=== PATIENT | female | born 1990 | race Caucasian/White ===

== ENCOUNTER 2016-10-28 15:08 | Emergency (ER) | payer OTHER ==
[2016-10-28] MEDS ORDERED: SODIUM CHLORIDE 0.9% 1,000 ML IV STA (16:59)
[2016-10-28] MEDS ORDERED: ONDANSETRON 4 MG/2 ML VIAL IVP STA (16:59)
--- NOTE | 2016-10-28 17:26 | ED ---
General Adult HPI - General Chief complaint: Skin/Abscess/Foreign Body Stated complaint: Post OP pain/C section Time Seen by Provider: 10/28/16 16:48 Source: patient, RN notes reviewed Mode of arrival: ambulatory Limitations: no limitations - History of Present Illness Initial comments: Patient is a 26-year-old female status post 3 weeks, who presents emergency room today with chief complaint of lower abdominal pain. She states she's had this pain since . She states not been getting any better. She admits that she's unsure if there could be a possible infection around the incision line. She denies any other complaints associated symptoms. Patient denies any recent fever, chills, shortness of breath, chest pain, back pain, nausea or vomiting, numbness or tingling, dysuria or hematuria, constipation or diarrhea, headaches or visual changes, or any other complaints. - Related Data Home Medications Medication Instructions Recorded Confirmed Pnv#26/Iron Poly/FA/Dha 1 cap PO DAILY 10/28/16 10/28/16 [Vitafol-One Capsule] Previous Rx's Medication Instructions Recorded Nitrofurantoin Monohyd/M-Cryst 100 mg PO Q12HR #14 cap 10/28/16 [Macrobid] Allergies Allergy/AdvReac Type Severity Reaction Status Date / Time erythromycin base AdvReac Abdominal Verified 10/28/16 17:03 Pain Review of Systems ROS Statement: Those systems with pertinent positive or pertinent negative responses have been documented in the HPI. ROS Other: All systems not noted in ROS Statement are negative. Past Medical History Past Medical History: Asthma, GERD/Reflux History of Any Multi-Drug Resistant Organisms: None Reported Past Surgical History: Section Past Psychological History: Anxiety Smoking Status: Former smoker Past Alcohol Use History: None Reported Past Drug Use History: None Reported General Exam - General Exam Comments Initial Comments: General: The patient is awake and alert, in no distress, and does not appear acutely ill. Eye: Pupils are equal, round and reactive to light, extra-ocular movements are intact. No nystagmus. There is normal conjunctiva bilaterally. No signs of icterus. Ears, nose, mouth and throat: There are moist mucous membranes and no oral lesions. Neck: The neck is supple, there is no tenderness or JVD. Cardiovascular: There is a regular rate and rhythm. No murmur, rub or gallop is appreciated. Respiratory: Lungs are clear to auscultation, respirations are non-labored, breath sounds are equal. No wheezes, stridor, rales, or rhonchi. Gastrointestinal: Patient does have low incision that is healing well. No sign of redness erythema. No sign of infection. Patient does have some mild tenderness to the lower abdomen on palpation. Musculoskeletal: Normal ROM, no tenderness. Strength 5/5. Sensation intact. Pulses equal bilaterally 2+. Neurological: A&O x 3. CN II-XII intact, There are no obvious motor or sensory deficits. Coordination appears grossly intact. Speech is normal. Skin: Skin is warm and dry and no rashes or lesions are noted. Psychiatric: Cooperative, appropriate mood & affect, normal judgment. Limitations: no limitations Course Vital Signs 10/28/16 15:18 Temperature 98.0 F Pulse Rate 97 Respiratory 18 Rate Blood Pressure 139/89 O2 Sat by Pulse 100 Oximetry Medical Decision Making - Medical Decision Making Patient reexamined at this time shows no signs of distress. Patient's labs been reviewed and shows no elevated white count. Negative lactic acid. Patient 's urinalysis shows 7 white cells. Patient admits that the pain has been constant since . States she's not getting any worse. Patient has no fever. No other symptoms currently. Patient does admit to increased urinary frequency some discomfort. Patient will be started on antibiotics to cover for urinary tract infection. At this time is no signs or symptoms for a surgical abdomen. Patient will be discharged home advised follow-up with the [facility] for further evaluation in the next 2 days. Advised return here to the emergency room if any symptoms increase or worsen or for any other concerns. - Lab Data Result diagrams: 10/28/16 17:22 10/28/16 17:22 Lab Results 10/28/16 10/28/16 10/28/16 Range/Units 17:22 17:22 17:22 WBC 5.0 (3.8-10.6) k/uL RBC 3.95 (3.80-5.40) m/uL Hgb 11.5 (11.4-16.0) gm/dL Hct 36.4 (34.0-46.0) % MCV 92.2 (80.0-100.0) fL MCH 29.2 (25.0-35.0) pg MCHC 31.7 (31.0-37.0) g/dL RDW 13.2 (11.5-15.5) % Plt Count 418 (150-450) k/uL Neutrophils % 52 % Lymphocytes % 38 % Monocytes % 5 % Eosinophils % 2 % Basophils % 1 % Neutrophils # 2.6 (1.3-7.7) k/uL Lymphocytes # 1.9 (1.0-4.8) k/uL Monocytes # 0.3 (0-1.0) k/uL Eosinophils # 0.1 (0-0.7) k/uL Basophils # 0.0 (0-0.2) k/uL Sodium 142 (137-145) mmol/L Potassium 4.1 (3.5-5.1) mmol/L Chloride 106 (98-107) mmol/L Carbon Dioxide 24 (22-30) mmol/L Anion Gap 12 mmol/L BUN 15 (7-17) mg/dL Creatinine 0.60 (0.52-1.04) mg/dL Est GFR (MDRD) Af Amer >60 (>60 ml/min/1.73 sqM) Est GFR (MDRD) Non-Af >60 (>60 ml/min/1.73 sqM) Glucose 93 (74-99) mg/dL Plasma Lactic Acid Martin (0.7-2.0) mmol/L Calcium 10.3 H (8.4-10.2) mg/dL Total Bilirubin 0.5 (0.2-1.3) mg/dL AST 35 (14-36) U/L ALT 49 (9-52) U/L Alkaline Phosphatase 85 (38-126) U/L Total Protein 7.5 (6.3-8.2) g/dL Albumin 4.6 (3.5-5.0) g/dL Urine Color Urine Appearance (Clear) Urine pH (5.0-8.0) Ur Specific [place] (1.001-1.035) Urine Protein (Negative) Urine Glucose (UA) (Negative) Urine Ketones (Negative) Urine Blood (Negative) Urine Nitrite (Negative) Urine Bilirubin (Negative) Urine Urobilinogen (<2.0) mg/dL Ur Leukocyte Esterase (Negative) Urine RBC (0-5) /hpf Urine WBC (0-5) /hpf Ur Squamous Epith Cells (0-4) /hpf Hyaline Casts (0-2) /lpf Granular Casts (0) /lpf Urine Mucus (None) /hpf Urine HCG, Qual Not Detected (Not Detectd) 10/28/16 10/28/16 Range/Units 17:22 17:22 WBC (3.8-10.6) k/uL RBC (3.80-5.40) m/uL Hgb (11.4-16.0) gm/dL Hct (34.0-46.0) % MCV (80.0-100.0) fL MCH (25.0-35.0) pg MCHC (31.0-37.0) g/dL RDW (11.5-15.5) % Plt Count (150-450) k/uL Neutrophils % % Lymphocytes % % Monocytes % % Eosinophils % % Basophils % % Neutrophils # (1.3-7.7) k/uL Lymphocytes # (1.0-4.8) k/uL Monocytes # (0-1.0) k/uL Eosinophils # (0-0.7) k/uL Basophils # (0-0.2) k/uL Sodium (137-145) mmol/L Potassium (3.5-5.1) mmol/L Chloride (98-107) mmol/L Carbon Dioxide (22-30) mmol/L Anion Gap mmol/L BUN (7-17) mg/dL Creatinine (0.52-1.04) mg/dL Est GFR (MDRD) Af Amer (>60 ml/min/1.73 sqM) Est GFR (MDRD) Non-Af (>60 ml/min/1.73 sqM) Glucose (74-99) mg/dL Plasma Lactic Acid Martin 1.0 (0.7-2.0) mmol/L Calcium (8.4-10.2) mg/dL Total Bilirubin (0.2-1.3) mg/dL AST (14-36) U/L ALT (9-52) U/L Alkaline Phosphatase (38-126) U/L Total Protein (6.3-8.2) g/dL Albumin (3.5-5.0) g/dL Urine Color Yellow Urine Appearance Cloudy H (Clear) Urine pH 6.5 (5.0-8.0) Ur Specific [place] 1.019 (1.001-1.035) Urine Protein Trace H (Negative) Urine Glucose (UA) Negative (Negative) Urine Ketones Negative (Negative) Urine Blood Small H (Negative) Urine Nitrite Negative (Negative) Urine Bilirubin Negative (Negative) Urine Urobilinogen <2.0 (<2.0) mg/dL Ur Leukocyte Esterase Trace H (Negative) Urine RBC 19 H (0-5) /hpf Urine WBC 7 H (0-5) /hpf Ur Squamous Epith Cells 7 H (0-4) /hpf Hyaline Casts 2 (0-2) /lpf Granular Casts 2 (0) /lpf Urine Mucus Few H (None) /hpf Urine HCG, Qual (Not Detectd) Disposition Clinical Impression: UTI (urinary tract infection) Disposition: HOME SELF-CARE Condition: Good Instructions: Urinary Tract Infection in Women (ED) Additional Instructions: Please use medication as discussed. Please follow-up with family doctor in the next 2 days of symptoms have not improved. Please return to emergency room if the symptoms increase or worsen or for any other concerns. Prescriptions: Nitrofurantoin Monohyd/M-Cryst [Macrobid] 100 mg PO Q12HR #14 cap Referrals: Selam Holloway MD [Primary Care Provider] - 1-2 days Time of Disposition: 18:23
--- NOTE | 2016-10-28 17:34 | XR ---
EXAMINATION TYPE: XR KUB DATE OF EXAM: 10/28/2016 5:30 PM COMPARISON: 06/14/2015 HISTORY: Abdominal pain TECHNIQUE: Single view FINDINGS: Bowel gas pattern is normal. There is no sign of intestinal obstruction or pneumoperitoneum . Fecal pattern is normal. There is no sign of a mass. IMPRESSION: Nonacute abdomen. No change.
[2016-10-28 17:37] LABS: Basophils % (A) 1 %; CH 29.6; CHCM 32.2; Eosinophils # (A) 0.1 k/uL (0-0.7); Eosinophils % (A) 2 %; HCT 36.4 % (34.0-46.0); HDW 2.61; HGB 11.5 gm/dL (11.4-16.0); Luc # (Auto) 0.15; Luc % (Auto) 3; Lymphocytes # (A) 1.9 k/uL (1.0-4.8); Lymphocytes % (A) 38 %; MCH 29.2 pg (25.0-35.0); MCHC 31.7 g/dL (31.0-37.0); MCV 92.2 fL (80.0-100.0); Monocytes # (A) 0.3 k/uL (0-1.0); Monocytes % (A) 5 %; Neutrophils # (A) 2.6 k/uL (1.3-7.7); Neutrophils % (A) 52 %; RBC 3.95 m/uL (3.80-5.40); RDW 13.2 % (11.5-15.5); WBC (Perox) 5.28
[2016-10-28 17:47] LABS: ALT 49 U/L (9-52); AST 35 U/L (14-36); Alkaline Phosphatase 85 U/L (38-126); Anion Gap 12 mmol/L; Appearance,Urine Cloudy (Clear); Bilirubin,Urine Negative (Negative); Blood Urea Nitrogen 15 mg/dL (7-17); Calcium 10.3 mg/dL (8.4-10.2); Carbon Dioxide 24 mmol/L (22-30); Chloride 106 mmol/L (98-107); Glucose 93 mg/dL (74-99); Glucose,Urine (UA) Negative (Negative); Granular Casts,Urine 2 /lpf (0); Ketones,Urine Negative (Negative); Leukocyte Esterase,Urine Trace (Negative); Mucus,Urine Few /hpf; Nitrite,Urine Negative (Negative); Non-African American GFR(MDRD) >60 (>60 ml/min/1.73 sqM); PH, Urine 6.5 (5.0-8.0); Particle Count 5661; Potassium 4.1 mmol/L (3.5-5.1); Protein,Urine Trace (Negative); RBC,Urine 19 /hpf (0-5); Sodium 142 mmol/L (137-145); Specific Gravity,Urine 1.019 (1.001-1.035); Squamous Epithelial Cell,Urine 7 /hpf (0-4); Total Bilirubin 0.5 mg/dL (0.2-1.3); Total Protein 7.5 g/dL (6.3-8.2); UA Billing (MACRO vs. MICRO) MICRO; Urobilinogen,Urine <2.0 mg/dL (<2.0); WBC,Urine 7 /hpf (0-5)
[2016-10-28] MEDS ORDERED: KETOROLAC 30 MG/ML 1 ML VIAL IVP STA (18:39)
[2016-10-28 18:51] VITALS: BP 150/78; PULSE 55; RESP 16; TEMP 97.8
== END 2016-10-28 18:49 | disposition home or self-care (01) ==
LOC: EC 15:08
DX: O86.20 Urinary tract infection following delivery, unspecified (principal); O99.89 Other specified diseases and conditions complicating pregnancy, childbirth and the puerperium; R10.30 Lower abdominal pain, unspecified; Z87.891 Personal history of nicotine dependence; Z79.899 Other long term (current) drug therapy; Z88.1 Allergy status to other antibiotic agents
CPT/HCPCS: 36415; 80053; 83605; 85025; 81001; 81025; 87086; 74000; 99284; 96374; 96361; J1885

== ENCOUNTER 2017-07-06 09:46 | Day surgery (SDC) | payer OTHER ==
[2017-07-06] MEDS ORDERED: LIDOCAINE 1% 20 ML VIAL (10MG/ML) FOR IV START INTRADERMA PRN (10:22)
[2017-07-06] MEDS: LACTATED RINGERS 1,000 ML IV SCH ×2 (10:33→11:09)
[2017-07-06 10:44] VITALS: RESP 16; TEMP 98.1
[2017-07-06] MEDS ORDERED: PROPOFOL 10 MG/ML 20 ML VIAL IV ONE (10:52)
[2017-07-06] MEDS ORDERED: LIDOCAINE 1% INJ 10MG/ML (20 ML MDV) ONE (10:52)
--- NOTE | 2017-07-06 11:00 | P.GSHP ---
History of Present Illness H&P Date: 07/06/17 Chief Complaint: Or colon polyps This is a 18-year-old female who's had a previous colonoscopy. Patient has had history of colon polyps. She presents today for colonoscopy Past Medical History Past Medical History: Asthma, GERD/Reflux History of Any Multi-Drug Resistant Organisms: None Reported Past Surgical History: Section Past Psychological History: Anxiety Smoking Status: Former smoker Past Alcohol Use History: None Reported Past Drug Use History: None Reported Medications and Allergies Allergies Allergy/AdvReac Type Severity Reaction Status Date / Time erythromycin base AdvReac Abdominal Verified 10/28/16 17:03 Pain Surgical - Exam Vital Signs Temp Pulse Resp BP Pulse Ox 98.1 F 99 16 110/73 100 07/06/17 10:41 07/06/17 10:41 07/06/17 10:41 07/06/17 10:41 07/06/17 10:41 - General well developed, no distress - Eyes PERRL - ENT normal pinna - Neck no masses - Respiratory normal expansion - Cardiovascular Rhythm: regular - Abdomen Abdomen: soft, non tender Assessment and Plan Assessment: [place] colon polyps. We'll perform colonoscopy.
[2017-07-06 12:02] VITALS: BP 117/73; PULSE 74
--- NOTE | 2017-08-13 09:03 | P.OP ---
Date of Procedure: 07/06/17 Preoperative Diagnosis: History of colon polyps Postoperative Diagnosis: Normal colonoscopy Procedure(s) Performed: Colonoscopy Anesthesia: MAC Surgeon: Paul Rey Pathology: none sent Condition: stable Disposition: PACU Description of Procedure: PROCEDURE: The patient was placed on the endoscopy table in the lateral position. Digital rectal examination was performed which revealed no abnormalities. T Flexible colonoscope was then placed in the patient's anus and passed throughout the entire colon. The ileocecal valve was visualized. The cecum, ascending, transverse, descending and sigmoid colon were normal. The rectum was normal as well. There were no masses, polyps or diverticula noted in the entire colon. SUMMARY OF FINDINGS: Normal colonoscopy.
== END 2017-07-06 12:08 | disposition home or self-care (01) ==
LOC: ORWHC2ENDO 09:46
PROVIDERS: ATTEND Surgery
DX: Z12.11 Encounter for screening for malignant neoplasm of colon (principal); Z86.010 Personal history of colon polyps; J45.909 Unspecified asthma, uncomplicated; K21.9 Gastro-esophageal reflux disease without esophagitis; Z87.891 Personal history of nicotine dependence; Z88.1 Allergy status to other antibiotic agents
CPT/HCPCS: 81025; J2001; J2704; G0105; 45378

== ENCOUNTER 2017-10-26 16:14 | Emergency (ER) | payer OTHER ==
[2017-10-26 16:29] VITALS: BP 134/87; PULSE 99; RESP 18; TEMP 98.1
--- NOTE | 2017-10-26 16:31 | ED ---
General Adult HPI - General Chief complaint: Abdominal Pain Stated complaint: Hernia Time Seen by Provider: 10/26/17 16:31 Source: patient Mode of arrival: ambulatory Limitations: no limitations - History of Present Illness Initial comments: 27-year-old female presents to the emergency department today for evaluation of pain at her umbilical hernia. Patient reports that she has had a umbilical hernia for a number of years, and increased in size significantly during her previous and has been persistent for the past one year. She reports over the past week she has developed worsening discomfort in her umbilical hernia as well as epigastrium. She was evaluated an outside hospital on Thursday, she reports that she had lab work as well as a computed tomography scan which revealed a fat-containing umbilical hernia she was diagnosed with acid reflux and discharged home with a PPI. Patient contacted her general surgeon's office today to establish follow- up, she was advised that her surgeon is out of town for the weekend she had a follow-up appointment scheduled for next Thursday. Patient reports that her symptoms have been constant throughout the week. They' ve been unchanged recently. She reports normal bowel bladder activity. She denies any worsening or change in the character of the discomfort in her umbilical hernia. Patient does express significant anxiety at the prospect of having surgery. She expresses concern that she will not be able to carry her 1-year-old child arch into her normal activities of daily living. - Related Data Home Medications Medication Instructions Recorded Confirmed Acetaminophen [Children's Tylenol] 1 dose PO ONCE PRN 10/26/17 10/26/17 Bismuth Subsalicylate 30 mg PO ONCE PRN 10/26/17 10/26/17 [Pepto-Bismol] Ibuprofen [Motrin Ib] 200 - 400 mg PO Q6H PRN 10/26/17 10/26/17 Ibuprofen/Diphenhydramine HCl 1 cap PO HS PRN 10/26/17 10/26/17 [Advil Pm Liqui-Gels] Previous Rx's Medication Instructions Recorded HYDROcodone/APAP 5-325MG [[place] 1 tab PO Q6HR PRN #10 tab 10/26/17 5-325] Allergies Allergy/AdvReac Type Severity Reaction Status Date / Time erythromycin base AdvReac Abdominal Verified 10/26/17 16:37 Pain Review of Systems ROS Statement: Those systems with pertinent positive or pertinent negative responses have been documented in the HPI. ROS Other: All systems not noted in ROS Statement are negative. Constitutional: Denies: fever, chills Respiratory: Denies: cough, dyspnea Cardiovascular: Denies: chest pain, palpitations Endocrine: Denies: fatigue Gastrointestinal: Reports: abdominal pain. Denies: nausea, vomiting, diarrhea, constipation Genitourinary: Denies: dysuria Musculoskeletal: Denies: back pain Skin: Denies: rash, lesions Neurological: Denies: headache, weakness Psychiatric: Reports: anxiety Hematological/Lymphatic: Denies: easy bleeding, easy bruising Past Medical History Past Medical History: Asthma, GERD/Reflux History of Any Multi-Drug Resistant Organisms: None Reported Past Surgical History: Section Past Psychological History: Anxiety Smoking Status: Former smoker Past Alcohol Use History: None Reported Past Drug Use History: None Reported General Exam Limitations: no limitations General appearance: alert Head exam: Present: atraumatic, normocephalic, normal inspection Eye exam: Present: normal appearance, PERRL ENT exam: Present: normal exam Neck exam: Present: normal inspection Respiratory exam: Absent: respiratory distress Cardiovascular Exam: Present: regular rate GI/Abdominal exam: Present: soft, tenderness, hernia (reducible umbilical hernia ). Absent: distended, guarding, rebound, rigid, normal bowel sounds Course Vital Signs 10/26/17 16:26 Temperature 98.1 F Pulse Rate 99 Respiratory 18 Rate Blood Pressure 134/87 O2 Sat by Pulse 97 Oximetry Medical Decision Making - Medical Decision Making Patient was seen and evaluated, patient complaining of pain at the umbilicus. Patient was evaluated at an outside hospital on Thursday, computed tomography scan revealed a fat-containing umbilical hernia at that time she was referred to surgery for outpatient follow-up. In addition she was advised that some of her abdominal pain is likely secondary to acid reflux and she was prescribed Pepcid. Patient reports she has had persistent pain at the umbilicus since eating evaluated on Thursday, she reports there is been no change in character or severity of the pain. She called her general surgeon's office today to establish follow-up in family he will be out of town until next Thursday at which point she has an appointment to be evaluated. She was advised by the senior medical transcriptionist in the office that if she has persistent pain she needs to be reevaluated. This prompted the patient come to the emergency department for further evaluation Again patient reports no change in the character or severity of her pain. She reports that his been persistent for 3-4 days. She does feel that when she lays down she is able to reduce the hernia somewhat however it does remain present. She's had no change in her bowel or bladder habits. She does report significant anxiety at the prospect of having surgery and has multiple questions regarding the surgery and is concerned about possibility of having surgery while she has a 1-year-old child at home. I advised that she needs to discuss her concerns and questions about surgery with the surgeon Physical exam reveals a reducible fat-containing umbilical hernia, there are no overlying skin changes, there are no bowel sounds in the hernia, patient laying flat hernias able to be reduced and a 1-2 cm defect is palpable. Patient did experience some discomfort with reduction of hernia. And a long conversation with the patient regarding further workup. I offered her a repeat computed tomography scan to reevaluate this hernia. However patient states that because her computed tomography scan was only 3 days ago and because she feels very claustrophobic and anxious about computed tomography scan she does not want to repeat imaging. I discussed with the patient methods to reduce the hernia including laying flat , I advised her she should consider wearing a abdominal binder, she reports that she had one after her one year ago. In addition I advised her that should she develop any worsening pain, change in her bowel habits, skin color changes over the hernia or any new or concerning symptoms she needs to be reevaluated immediately. Patient has been evaluated, she has a reducible umbilical hernia, normal bowel sounds, normal bowel function Her vital signs are within normal limits with mild tachycardia, however she expresses significant anxiety at concern that she will be requiring surgery I offered to refer the patient to an alternate surgeon who could perhaps see her earlier than next Thursday, however the patient has an established relationship with her surgeon and does not want to follow up with anybody else. All questions pertaining to care were answered the best of my ability and the patient was discharged home with oral analgesia and a plan to follow up with surgery as scheduled next Thursday or return to the emergency department for reevaluation for any worsening or change in her condition. Disposition Clinical Impression: Umbilical hernia Disposition: HOME SELF-CARE Condition: Good Prescriptions: HYDROcodone/APAP 5-325MG [[place] 5-325] 1 tab PO Q6HR PRN #10 tab PRN Reason: Pain Referrals: Selam Holloway MD [Primary Care Provider] - 1-2 days Paul Rey MD [STAFF PHYSICIAN] - 1-2 days Time of Disposition: 17:03
[2017-10-26] MEDS ORDERED: HYDROcodone/APAP 5-325MG 1 EACH TAB PO STA (17:01)
== END 2017-10-26 17:52 | disposition home or self-care (01) ==
LOC: EC 16:14
DX: K42.9 Umbilical hernia without obstruction or gangrene (principal); R00.0 Tachycardia, unspecified; F41.9 Anxiety disorder, unspecified; Z87.891 Personal history of nicotine dependence; Z88.1 Allergy status to other antibiotic agents
CPT/HCPCS: 99284

== ENCOUNTER 2017-11-10 09:03 | Day surgery (SDC) | payer OTHER ==
[2017-11-09 08:38] VITALS: BMI 31.1
[~2017-11-10 09:03] MED LIST: DEXAMETHASONE SOD PHOSPHATE 10 MG/ML 1 ML VIAL IV ONE; HEPARIN SODIUM,PORCINE 5,000 UNIT/ML 1 ML VIAL SQ ONE; HYDROmorphone 0.5 MG/0.5 ML SYRINGE IVP PRN; LIDOCAINE 1% 20 ML VIAL (10MG/ML) FOR IV START INTRADERMA PRN; ONDANSETRON 4 MG/2 ML VIAL IVP ONE; SCOPOLAMINE 1.5MG/72HR PATCH TRANSDERM ONE; ceFAZolin IN SWFI 2 GM/20 ML SYRINGE IVP ONE
[2017-11-10] MEDS: LACTATED RINGERS 1,000 ML IV SCH ×2 (10:05→10:48)
--- NOTE | 2017-11-10 10:20 | P.GSHP ---
History of Present Illness H&P Date: 11/10/17 Chief Complaint: Incarcerated umbilical hernia This is a 18-year-old female who presents today for laparoscopic robotic- assisted repair of incarcerated umbilical hernia. Patient developed a 5 cm mass at her umbilicus. There is appears omentum within the hernia. Past Medical History Past Medical History: Asthma, GERD/Reflux History of Any Multi-Drug Resistant Organisms: None Reported Past Surgical History: Section Additional Past Surgical History / Comment(s): Colonoscopy Past Anesthesia/Blood Transfusion Reactions: No Reported Reaction Smoking Status: Former smoker - Past Family History Mother Family Medical History: No Reported History Medications and Allergies Home Medications Medication Instructions Recorded Confirmed Type Acetaminophen [Children's Tylenol] 1 dose PO ONCE PRN 10/26/17 11/10/17 History Bismuth Subsalicylate 30 mg PO ONCE PRN 10/26/17 11/10/17 History [Pepto-Bismol] HYDROcodone/APAP 5-325MG [[place] 1 tab PO Q6HR PRN #10 tab 10/26/17 11/10/17 Rx 5-325] Ibuprofen [Motrin Ib] 200 - 400 mg PO Q6H PRN 10/26/17 11/09/17 History Ibuprofen/Diphenhydramine HCl 1 cap PO HS PRN 10/26/17 11/09/17 History [Advil Pm Liqui-Gels] Albuterol Inhaler [Ventolin Hfa 1 - 2 puff INHALATION Q6HR PRN 11/09/17 History Inhaler] Allergies Allergy/AdvReac Type Severity Reaction Status Date / Time erythromycin base AdvReac Abdominal Verified 11/10/17 09:48 Pain Surgical - Exam Vital Signs Temp Pulse Resp BP Pulse Ox 97.7 F 73 16 119/71 98 11/10/17 09:56 11/10/17 09:56 11/10/17 09:56 11/10/17 09:56 11/10/17 09:56 - General well developed, no distress - Eyes PERRL - ENT normal pinna - Neck no masses - Respiratory normal expansion - Cardiovascular Rhythm: regular - Abdomen Abdomen: soft, non tender Assessment and Plan Assessment: Incarcerated umbilical hernia. We'll perform laparoscopic robotic-assisted repair.
[2017-11-10] MEDS: MIDAZOLAM 2 MG/2 ML VIAL IV PRN ×2 (10:26→10:33)
[2017-11-10] MEDS ORDERED: BUPIVACAINE (PF) 0.25% 30 ML VIAL SQ ONE (10:35)
--- NOTE | 2017-11-10 10:45 | P.ONQ ---
Anesthesiology Proc Note - PNB - Peripheral Nerve Block Performed Right Rectus Abdominis Single Time Out Performed: Yes (1033) Procedure Start Time: 10:34 Procedure Stop Time: :42 Indication: Acute Post-Operative Pain, Requested by physician Sedation Type: Sedate with meaningful contact maintained Preparation: Sterile Prep Position: Supine Needle Types: Facet Needle Size: 150mm (6") Needle Gauge: 20 Technique: Ultrasound Injectate: 0.5% Ropivacaine (see comment for volume) (15 mls or Ropivacaine) Blood Aspirated: No Pain Paresthesia on Injection Noted: No Resistance on Injection: Normal Events: Uneventful and Well Tolerated
--- NOTE | 2017-11-10 10:46 | P.ONQ ---
Anesthesiology Proc Note - PNB - Peripheral Nerve Block Performed Left Rectus Abdominis Single Time Out Performed: Yes (1033) Procedure Start Time: 10:43 Procedure Stop Time: :46 Indication: Acute Post-Operative Pain, Requested by physician Sedation Type: Sedate with meaningful contact maintained Preparation: Sterile Prep Position: Supine Needle Types: Facet Needle Size: 150mm (6") Needle Gauge: 20 Technique: Ultrasound Injectate: 0.5% Ropivacaine (see comment for volume) (15 mls Ropivacaine) Blood Aspirated: No Pain Paresthesia on Injection Noted: No Resistance on Injection: Normal Events: Uneventful and Well Tolerated
[2017-11-10] MEDS ORDERED: KETOROLAC 30 MG/ML 1 ML VIAL ONE (10:49)
[2017-11-10] MEDS ORDERED: fentaNYL (PF) 50 MCG/ML 2 ML AMP ONE (10:49)
[2017-11-10] MEDS ORDERED: MIDAZOLAM 2 MG/2 ML VIAL ONE (10:49)
[2017-11-10] MEDS ORDERED: LIDOCAINE 1% INJ 10MG/ML (20 ML MDV) ONE (10:49)
[2017-11-10] MEDS ORDERED: SUCCINYLCHOLINE CHLORIDE 100 MG/5 ML SYR IV ONE (10:49)
[2017-11-10] MEDS ORDERED: GLYCOPYRROLATE 0.2 MG/ML 2 ML VIAL ONE (10:49)
[2017-11-10] MEDS ORDERED: NEOSTIGMINE 1 MG/ML 10 ML VIAL ONE (10:49)
[2017-11-10] MEDS ORDERED: ONDANSETRON 4 MG/2 ML VIAL ONE (10:49)
[2017-11-10] MEDS ORDERED: ROCURONIUM BROMIDE 10 MG/ML 10 ML VIAL IV ONE (10:49)
[2017-11-10] MEDS ORDERED: LACTATED RINGERS 1,000 ML IV ONE (12:04)
--- NOTE | 2017-11-10 12:16 | P.OP ---
Date of Procedure: 11/10/17 Preoperative Diagnosis: Incarcerated umbilical hernia Postoperative Diagnosis: Incarcerated incisional hernia Procedure(s) Performed: Laparoscopic robotic-assisted repair of incarcerated incisional hernia Partial omentectomy Anesthesia: BRIGETTE Surgeon: Paul Rey Estimated Blood Loss (ml): 5 Pathology: other (Omentum) Condition: stable Disposition: PACU Description of Procedure: MThe patient was placed on the operating table in the supine position. He received general anesthesia. His abdomen was prepped and draped usual fashion. Using a 5 mm optical trocar under direct visualization the peritoneal cavity was entered in the left upper quadrant. The abdomen was then insufflated. The laparoscope was placed back into the perineal cavity. Next a 8 mm robotic trocar was placed in the left lower quadrant and a 12 mm robotic trocar was placed in the left lateral position. The original 5 mm trocar was exchanged for a 8 mm robotic trocar. The patient's placed in the left side up position. And the patient was docked to the robot. The incisional hernia was visualized. Using hook cautery the peritoneum over the incisional hernia was excised. The conversion omentum was excised. The fascial opening was repaired using 0V LOC suture. Next a piece of 11 cm round ventral light ST mesh was placed into the. Cavity and secured with 2 OV lock suture. The patient was undocked the robot. The needles were retrieved. Incarcerated omentum was removed and sent to pathology. The fascia of the 12 mm trocar site was closed with 0 Ethibond suture. Skin was closed interrupted 3-0 Monocryl suture. Dermabond dressings was applied. Patient tolerated procedure well and was sent to recovery room stable condition.
[2017-11-10] MEDS: fentaNYL (PF) 50 MCG/ML 2 ML AMP IV PRN ×2 (12:19→12:23)
[2017-11-10 12:26] VITALS: TEMP 98.5
[2017-11-10] MEDS: MEPERIDINE 50 MG/ML SYRINGE IVP ONE ×2 (12:32→12:40)
[2017-11-10 12:50] VITALS: RESP 16
[2017-11-10] MEDS ORDERED: HYDROcodone/APAP 7.5-325MG 1 EACH TAB PO ONE (13:24)
[2017-11-10 13:39] VITALS: BP 117/72; PULSE 68
== END 2017-11-10 14:40 | disposition home or self-care (01) ==
LOC: OR 09:03
PROVIDERS: ATTEND Surgery
DX: K43.0 Incisional hernia with obstruction, without gangrene (principal); K21.9 Gastro-esophageal reflux disease without esophagitis; J45.909 Unspecified asthma, uncomplicated; F41.9 Anxiety disorder, unspecified; Z87.891 Personal history of nicotine dependence; Z88.1 Allergy status to other antibiotic agents
CPT/HCPCS: 49655; 64488; S2900; 81025; 88302

== ENCOUNTER 2019-05-29 10:17 | Emergency (ER) | payer OTHER ==
[2019-05-29] MEDS ORDERED: SODIUM CHLORIDE 0.9% 2,000 ML IV STA (11:02)
[2019-05-29] MEDS ORDERED: ONDANSETRON 4 MG/2 ML VIAL IVP STA (11:24)
--- NOTE | 2019-05-29 11:30 | ED ---
Nausea/Vomiting/Diarrhea HPI - General Chief complaint: Nausea/Vomiting/Diarrhea Stated complaint: Vomiting Time Seen by Provider: 05/29/19 10:56 Source: patient, RN notes reviewed Mode of arrival: ambulatory Limitations: no limitations - History of Present Illness Initial comments: 28-year-old female presents emergency Department with chief complaint of ongoing nausea concern for . Patient states that she had her Mirena removed 3- 4 weeks ago. Patient states that she also stopped her Lamictal and Seroquel. Patient states that she's been having hot and cold flashes, nausea vomiting and difficulty eating. She has no localized abdominal pain. She denies any vaginal bleeding vaginal discharge did not take a test at home. She is A1. Patient denies any fevers or chills no back pain no chest pain or shortness breath. - Related Data Home Medications Medication Instructions Recorded Confirmed Acetaminophen [Children's Tylenol] 1 dose PO ONCE PRN 10/26/17 11/10/17 Bismuth Subsalicylate 30 mg PO ONCE PRN 10/26/17 11/10/17 [Pepto-Bismol] Ibuprofen [Motrin Ib] 200 - 400 mg PO Q6H PRN 10/26/17 11/09/17 Ibuprofen/Diphenhydramine HCl 1 cap PO HS PRN 10/26/17 11/09/17 [Advil Pm Liqui-Gels] Albuterol Inhaler [Ventolin Hfa 1 - 2 puff INHALATION Q6HR PRN 11/09/17 11/10/17 Inhaler] Previous Rx's Medication Instructions Recorded HYDROcodone/APAP 5-325MG [[place] 1 tab PO Q6HR PRN #10 tab 10/26/17 5-325] Docusate [Colace] 100 mg PO BID #20 capsule 11/10/17 HYDROcodone/APAP 7.5-325MG [[place] 1 each PO Q4H PRN #30 tab 11/10/17 7.5] Pnv No.95/Ferrous Fum/Folic AC 1 each PO DAILY #30 tablet 05/29/19 [ Multivitamin Tablet] Allergies Allergy/AdvReac Type Severity Reaction Status Date / Time erythromycin base AdvReac Abdominal Verified 05/29/19 10:27 Pain Review of Systems ROS Statement: Those systems with pertinent positive or pertinent negative responses have been documented in the HPI. ROS Other: All systems not noted in ROS Statement are negative. Past Medical History Past Medical History: Asthma, GERD/Reflux History of Any Multi-Drug Resistant Organisms: None Reported Past Surgical History: Section Additional Past Surgical History / Comment(s): Colonoscopy Past Anesthesia/Blood Transfusion Reactions: No Reported Reaction Past Psychological History: Anxiety Smoking Status: Former smoker - Past Family History Mother Family Medical History: No Reported History General Exam Limitations: no limitations General appearance: alert, in no apparent distress Head exam: Present: atraumatic, normocephalic, normal inspection Eye exam: Present: normal appearance, PERRL, EOMI. Absent: scleral icterus, conjunctival injection, periorbital swelling ENT exam: Present: normal exam, normal oropharynx, mucous membranes moist Neck exam: Present: normal inspection, full ROM. Absent: tenderness, meningismus, lymphadenopathy Respiratory exam: Present: normal lung sounds bilaterally. Absent: respiratory distress, wheezes, rales, rhonchi, stridor Cardiovascular Exam: Present: regular rate, normal rhythm, normal heart sounds. Absent: systolic murmur, diastolic murmur, rubs, gallop, clicks Back exam: Absent: CVA tenderness (R), CVA tenderness (L) Neurological exam: Present: alert, oriented X3 Skin exam: Present: warm, dry, intact, normal color. Absent: rash Course Vital Signs 05/29/19 05/29/19 05/29/19 10:35 11:45 12:19 Temperature 98.4 F 98.5 F Pulse Rate 104 H 67 Respiratory 18 20 18 Rate Blood Pressure 127/73 115/84 O2 Sat by Pulse 98 99 Oximetry Medical Decision Making - Medical Decision Making Ultrasound is unremarkable at this time, no gestational sac identified secondary to BHC of 262. Patient we discharged advised follow-up with [facility]. Patient will be started on vitamin. Take [id number] Unisom and B6 for nausea. - Lab Data Result diagrams: 05/29/19 11:38 05/29/19 11:38 Lab Results 05/29/19 05/29/19 05/29/19 Range/Units 11:38 11:38 11:38 WBC 9.4 (3.8-10.6) k/uL RBC 4.43 (3.80-5.40) m/uL Hgb 13.9 (11.4-16.0) gm/dL Hct 41.3 (34.0-46.0) % MCV 93.2 (80.0-100.0) fL MCH 31.4 (25.0-35.0) pg MCHC 33.7 (31.0-37.0) g/dL RDW 12.1 (11.5-15.5) % Plt Count 377 (150-450) k/uL Neutrophils % 72 % Lymphocytes % 19 % Monocytes % 3 % Eosinophils % 3 % Basophils % 1 % Neutrophils # 6.7 (1.3-7.7) k/uL Lymphocytes # 1.7 (1.0-4.8) k/uL Monocytes # 0.3 (0-1.0) k/uL Eosinophils # 0.3 (0-0.7) k/uL Basophils # 0.1 (0-0.2) k/uL Sodium 140 (137-145) mmol/L Potassium 4.5 (3.5-5.1) mmol/L Chloride 106 (98-107) mmol/L Carbon Dioxide 22 (22-30) mmol/L Anion Gap 12 mmol/L BUN 11 (7-17) mg/dL Creatinine 0.63 (0.52-1.04) mg/dL Est GFR (CKD-EPI)AfAm >90 (>60 ml/min/1.73 sqM) Est GFR (CKD-EPI)NonAf >90 (>60 ml/min/1.73 sqM) Glucose 109 H (74-99) mg/dL Calcium 10.3 H (8.4-10.2) mg/dL Total Bilirubin 0.3 (0.2-1.3) mg/dL AST 22 (14-36) U/L ALT 52 (9-52) U/L Alkaline Phosphatase 84 (38-126) U/L Total Protein 7.9 (6.3-8.2) g/dL Albumin 4.8 (3.5-5.0) g/dL Amylase 53 (30-110) U/L Lipase 81 (23-300) U/L HCG, Quant 262.2 mIU/mL Urine Color Urine Appearance (Clear) Urine pH (5.0-8.0) Ur Specific [place] (1.001-1.035) Urine Protein (Negative) Urine Glucose (UA) (Negative) Urine Ketones (Negative) Urine Blood (Negative) Urine Nitrite (Negative) Urine Bilirubin (Negative) Urine Urobilinogen (<2.0) mg/dL Ur Leukocyte Esterase (Negative) Urine HCG, Qual (Not Detectd) 05/29/19 05/29/19 Range/Units 12:10 12:10 WBC (3.8-10.6) k/uL RBC (3.80-5.40) m/uL Hgb (11.4-16.0) gm/dL Hct (34.0-46.0) % MCV (80.0-100.0) fL MCH (25.0-35.0) pg MCHC (31.0-37.0) g/dL RDW (11.5-15.5) % Plt Count (150-450) k/uL Neutrophils % % Lymphocytes % % Monocytes % % Eosinophils % % Basophils % % Neutrophils # (1.3-7.7) k/uL Lymphocytes # (1.0-4.8) k/uL Monocytes # (0-1.0) k/uL Eosinophils # (0-0.7) k/uL Basophils # (0-0.2) k/uL Sodium (137-145) mmol/L Potassium (3.5-5.1) mmol/L Chloride (98-107) mmol/L Carbon Dioxide (22-30) mmol/L Anion Gap mmol/L BUN (7-17) mg/dL Creatinine (0.52-1.04) mg/dL Est GFR (CKD-EPI)AfAm (>60 ml/min/1.73 sqM) Est GFR (CKD-EPI)NonAf (>60 ml/min/1.73 sqM) Glucose (74-99) mg/dL Calcium (8.4-10.2) mg/dL Total Bilirubin (0.2-1.3) mg/dL AST (14-36) U/L ALT (9-52) U/L Alkaline Phosphatase (38-126) U/L Total Protein (6.3-8.2) g/dL Albumin (3.5-5.0) g/dL Amylase (30-110) U/L Lipase (23-300) U/L HCG, Quant mIU/mL Urine Color Yellow Urine Appearance Clear (Clear) Urine pH 7.0 (5.0-8.0) Ur Specific [place] 1.014 (1.001-1.035) Urine Protein Negative (Negative) Urine Glucose (UA) Negative (Negative) Urine Ketones Negative (Negative) Urine Blood Negative (Negative) Urine Nitrite Negative (Negative) Urine Bilirubin Negative (Negative) Urine Urobilinogen <2.0 (<2.0) mg/dL Ur Leukocyte Esterase Negative (Negative) Urine HCG, Qual Detected (Not Detectd) Disposition Clinical Impression: , Nausea Disposition: HOME SELF-CARE Condition: Stable Instructions (If sedation given, give patient instructions): (ED) Additional Instructions: Please return to the Emergency Department if symptoms worsen or any other concerns. Take [id number] Unisom and B6 vitamins for nausea Prescriptions: Pnv No.95/Ferrous Fum/Folic AC [ Multivitamin Tablet] 1 each PO DAILY #30 tablet Is patient prescribed a controlled substance at d/c from ED?: No Referrals: Selam Holloway MD [Primary Care Provider] - 1-2 days Time of Disposition: 14:02
[2019-05-29 11:46] VITALS: BP 115/84; PULSE 67; TEMP 98.5
[2019-05-29 11:49] LABS: Basophils # (A) 0.1 k/uL (0-0.2); Basophils % (A) 1 %; Eosinophils # (A) 0.3 k/uL (0-0.7); Eosinophils % (A) 3 %; HCT 41.3 % (34.0-46.0); HGB 13.9 gm/dL (11.4-16.0); Lymphocytes # (A) 1.7 k/uL (1.0-4.8); Lymphocytes % (A) 19 %; MCH 31.4 pg (25.0-35.0); MCHC 33.7 g/dL (31.0-37.0); MCV 93.2 fL (80.0-100.0); Mean Platelet Volume 6.1; Monocytes # (A) 0.3 k/uL (0-1.0); Monocytes % (A) 3 %; Neutrophils # (A) 6.7 k/uL (1.3-7.7); Neutrophils % (A) 72 %; Platelet Count 377 k/uL (150-450); RBC 4.43 m/uL (3.80-5.40); RDW 12.1 % (11.5-15.5); WBC 9.4 k/uL (3.8-10.6)
[2019-05-29 11:58] LABS: ALT 52 U/L (9-52); AST 22 U/L (14-36); African American GFR (CKD) >90 (>60 ml/min/1.73 sqM); Albumin 4.8 g/dL (3.5-5.0); Alkaline Phosphatase 84 U/L (38-126); Amylase 53 U/L (30-110); Anion Gap 12 mmol/L; Blood Urea Nitrogen 11 mg/dL (7-17); Calcium 10.3 mg/dL (8.4-10.2); Carbon Dioxide 22 mmol/L (22-30); Chloride 106 mmol/L (98-107); Glucose 109 mg/dL (74-99); Potassium 4.5 mmol/L (3.5-5.1); Sodium 140 mmol/L (137-145); Total Bilirubin 0.3 mg/dL (0.2-1.3); Total Protein 7.9 g/dL (6.3-8.2)
[2019-05-29 12:29] LABS: Appearance,Urine Clear (Clear); Bilirubin,Urine Negative (Negative); Blood,Urine Negative (Negative); Color,Urine Yellow; Glucose,Urine (UA) Negative (Negative); Ketones,Urine Negative (Negative); Leukocyte Esterase,Urine Negative (Negative); Nitrite,Urine Negative (Negative); Protein,Urine Negative (Negative); Specific Gravity,Urine 1.014 (1.001-1.035); Urobilinogen,Urine <2.0 mg/dL (<2.0)
--- NOTE | 2019-05-29 13:59 | US ---
EXAMINATION TYPE: Transabdominal DATE OF EXAM: 05/29/2019 1:12 PM COMPARISON: NONE CLINICAL HISTORY: pain, . Patient vomiting with positive test. EXAM PERFORMED: Transabdominal (TA) EXAM MEASUREMENTS: GESTATIONAL AGE / DATING Physician Established: Not yet established Dates by LMP: 05/03/2019 (3 weeks/5 days) EDC: 02/07/2020 Dates by First Scan: No previous this is first scan Dates by Current Scan for: Unable to date by today's study MATERNAL ANATOMY Uterus: 10.9 x 4.1 x 5.4 cm Right Ovary: 3.0 x 2.2 x 2.7 cm Left Ovary: 3.1 x 2.6 x 3.4 cm Post CDS / Adnexa: wnl Presence of free fluid: none GESTATION / SURVEY No gestational sac appreciated on today's exam. Date of LMP: 05/03/2020 Beta HcG (if available): 262 No ultrasound evidence for an IUP at this time. endo does not appear thickened. Recommend follow up a s there is a positive beta. Patient refused transvaginal ultrasound today. IMPRESSION: WE HAVE NOT IDENTIFIED INTRAUTERINE OR EXTRAUTERINE GESTATION AT THIS TIME. SHORT-TERM FOLLOW-UP RASHID A MINUS SERIAL BETA HCGS WOULD BE SUGGESTED.
[2019-05-29 14:08] VITALS: RESP 20
== END 2019-05-29 14:08 | disposition home or self-care (01) ==
LOC: EC 10:17
DX: O26.899 Other specified pregnancy related conditions, unspecified trimester (principal); R11.0 Nausea; O99.519 Diseases of the respiratory system complicating pregnancy, unspecified trimester; J45.909 Unspecified asthma, uncomplicated; Z88.1 Allergy status to other antibiotic agents; Z87.891 Personal history of nicotine dependence; Z3A.00 Weeks of gestation of pregnancy not specified
CPT/HCPCS: 36415; 80053; 82150; 83690; 85025; 81003; 81025; 84702; 76801; 99284; 96374; 96361; J2405

== ENCOUNTER 2019-07-19 09:08 | Emergency (ER) | payer OTHER ==
[2019-07-19 09:17] VITALS: RESP 16; TEMP 98.1
--- NOTE | 2019-07-19 09:31 | ED ---
Female Urogenital HPI - General Chief complaint: OB/Uterine Contractions Stated complaint: 11 1/2 wks preg/bleeding Time Seen by Provider: 07/19/19 09:18 Source: patient, RN notes reviewed, old records reviewed Mode of arrival: ambulatory Limitations: no limitations - History of Present Illness Initial comments: Patient is a 28-year-old female, , with one stillbirth at 32 weeks. Her LUNCH TRUCK DRIVER is Dr. Moore. She presents emergency department today for complaints of vaginal bleeding starting last night. She reports it's been a slow amount of bleeding and when she wipes. She denies any clots. She denies any significant cramping pain or abdominal pain on either side of her abdomen. Patient states she's had no associated fevers or chills. Denies dysuria. - Related Data Home Medications Medication Instructions Recorded Confirmed Acetaminophen [Children's Tylenol] 1 dose PO ONCE PRN 10/26/17 11/10/17 Bismuth Subsalicylate 30 mg PO ONCE PRN 10/26/17 11/10/17 [Pepto-Bismol] Ibuprofen [Motrin Ib] 200 - 400 mg PO Q6H PRN 10/26/17 11/09/17 Ibuprofen/Diphenhydramine HCl 1 cap PO HS PRN 10/26/17 11/09/17 [Advil Pm Liqui-Gels] Albuterol Inhaler [Ventolin Hfa 1 - 2 puff INHALATION Q6HR PRN 11/09/17 11/10/17 Inhaler] Previous Rx's Medication Instructions Recorded HYDROcodone/APAP 5-325MG [[place] 1 tab PO Q6HR PRN #10 tab 10/26/17 5-325] Docusate [Colace] 100 mg PO BID #20 capsule 11/10/17 HYDROcodone/APAP 7.5-325MG [[place] 1 each PO Q4H PRN #30 tab 11/10/17 7.5] Pnv No.95/Ferrous Fum/Folic AC 1 each PO DAILY #30 tablet 05/29/19 [ Multivitamin Tablet] Allergies Allergy/AdvReac Type Severity Reaction Status Date / Time erythromycin base AdvReac Abdominal Verified 07/19/19 09:17 Pain Review of Systems ROS Statement: Those systems with pertinent positive or pertinent negative responses have been documented in the HPI. ROS Other: All systems not noted in ROS Statement are negative. Past Medical History Past Medical History: Asthma, GERD/Reflux History of Any Multi-Drug Resistant Organisms: None Reported Past Surgical History: Section Additional Past Surgical History / Comment(s): Colonoscopy Past Anesthesia/Blood Transfusion Reactions: No Reported Reaction Past Psychological History: Anxiety Smoking Status: Former smoker - Past Family History Mother Family Medical History: No Reported History General Exam - General Exam Comments Initial Comments: 28 year old female, anxious. No distress. Limitations: no limitations General appearance: alert, in no apparent distress Head exam: Present: atraumatic Eye exam: Present: normal appearance, PERRL, EOMI. Absent: scleral icterus, co njunctival injection, periorbital swelling ENT exam: Present: normal exam, mucous membranes moist Neck exam: Present: normal inspection. Absent: tenderness, meningismus, lymphadenopathy Respiratory exam: Present: normal lung sounds bilaterally. Absent: respiratory distress, wheezes, rales, rhonchi, stridor Cardiovascular Exam: Present: regular rate, normal rhythm, normal heart sounds. Absent: systolic murmur, diastolic murmur, rubs, gallop, clicks GI/Abdominal exam: Present: soft, normal bowel sounds. Absent: distended, tenderness, guarding, rebound, rigid External exam: Present: normal external exam Speculum exam: Present: normal speculum exam, other (dried vaginal bleeding, cervical os is closed. ) By manual exam: Present: normal by manual exam Extremities exam: Present: normal inspection, full ROM, normal capillary refill. Absent: tenderness, pedal edema, joint swelling, calf tenderness Back exam: Present: normal inspection Neurological exam: Present: alert, oriented X3, CN II-XII intact Psychiatric exam: Present: normal affect, normal mood Skin exam: Present: warm, dry, intact, normal color. Absent: rash Course Vital Signs 07/19/19 09:16 Temperature 98.1 F Pulse Rate 111 H Respiratory 16 Rate Blood Pressure 111/68 O2 Sat by Pulse 98 Oximetry Medical Decision Making - Medical Decision Making Patient is a 28-year-old female who presents today for evaluation return for vaginal bleeding in early . Patient at this time states she is a female. 11 weeks . On pelvic exam she has some dried blood in vaginal vault. Cervical os appears closed. No abdominal tenderness. Patient's Rh is positive. Patient's ultrasound shows viable IUP measuring 11 weeks and 3 days. Patient denies focal with her LUNCH TRUCK DRIVER. Discussed return parameters. - Lab Data Result diagrams: 07/19/19 09:37 07/19/19 09:37 Lab Results 07/19/19 07/19/19 07/19/19 Range/Units 09:37 09:37 09:37 WBC 5.3 (3.8-10.6) k/uL RBC 4.28 (3.80-5.40) m/uL Hgb 13.1 (11.4-16.0) gm/dL Hct 39.3 (34.0-46.0) % MCV 91.8 (80.0-100.0) fL MCH 30.6 (25.0-35.0) pg MCHC 33.3 (31.0-37.0) g/dL RDW 12.2 (11.5-15.5) % Plt Count 299 (150-450) k/uL Neutrophils % 58 % Lymphocytes % 31 % Monocytes % 5 % Eosinophils % 2 % Basophils % 1 % Neutrophils # 3.1 (1.3-7.7) k/uL Lymphocytes # 1.7 (1.0-4.8) k/uL Monocytes # 0.3 (0-1.0) k/uL Eosinophils # 0.1 (0-0.7) k/uL Basophils # 0.0 (0-0.2) k/uL PT (9.0-12.0) sec INR (<1.2) APTT (22.0-30.0) sec Sodium 138 (137-145) mmol/L Potassium 3.7 (3.5-5.1) mmol/L Chloride 107 (98-107) mmol/L Carbon Dioxide 21 L (22-30) mmol/L Anion Gap 10 mmol/L BUN 10 (7-17) mg/dL Creatinine 0.52 (0.52-1.04) mg/dL Est GFR (CKD-EPI)AfAm >90 (>60 ml/min/1.73 sqM) Est GFR (CKD-EPI)NonAf >90 (>60 ml/min/1.73 sqM) Glucose 97 (74-99) mg/dL Calcium 9.6 (8.4-10.2) mg/dL Total Bilirubin 0.5 (0.2-1.3) mg/dL AST 17 (14-36) U/L ALT 15 (4-34) U/L Alkaline Phosphatase 64 (38-126) U/L Total Protein 7.0 (6.3-8.2) g/dL Albumin 4.2 (3.5-5.0) g/dL Blood Type O Positive Blood Type Recheck O Pos Bld Type Recheck Status No 07/19/19 Range/Units 09:37 WBC (3.8-10.6) k/uL RBC (3.80-5.40) m/uL Hgb (11.4-16.0) gm/dL Hct (34.0-46.0) % MCV (80.0-100.0) fL MCH (25.0-35.0) pg MCHC (31.0-37.0) g/dL RDW (11.5-15.5) % Plt Count (150-450) k/uL Neutrophils % % Lymphocytes % % Monocytes % % Eosinophils % % Basophils % % Neutrophils # (1.3-7.7) k/uL Lymphocytes # (1.0-4.8) k/uL Monocytes # (0-1.0) k/uL Eosinophils # (0-0.7) k/uL Basophils # (0-0.2) k/uL PT 10.0 (9.0-12.0) sec INR 0.9 (<1.2) APTT 26.8 (22.0-30.0) sec Sodium (137-145) mmol/L Potassium (3.5-5.1) mmol/L Chloride (98-107) mmol/L Carbon Dioxide (22-30) mmol/L Anion Gap mmol/L BUN (7-17) mg/dL Creatinine (0.52-1.04) mg/dL Est GFR (CKD-EPI)AfAm (>60 ml/min/1.73 sqM) Est GFR (CKD-EPI)NonAf (>60 ml/min/1.73 sqM) Glucose (74-99) mg/dL Calcium (8.4-10.2) mg/dL Total Bilirubin (0.2-1.3) mg/dL AST (14-36) U/L ALT (4-34) U/L Alkaline Phosphatase (38-126) U/L Total Protein (6.3-8.2) g/dL Albumin (3.5-5.0) g/dL Blood Type Blood Type Recheck Bld Type Recheck Status - Radiology Data Radiology results: report reviewed Now confirmation a single live intrauterine with mean crown-rump length 4.6cm corresponding to 11 weeks and 3 day fetus. Disposition Clinical Impression: Abnormal uterine bleeding, 11 weeks gestation of Disposition: HOME SELF-CARE Condition: Good Instructions (If sedation given, give patient instructions): Dysfunctional Uterine Bleeding (ED), Threatened Miscarriage (ED) Additional Instructions: Pelvic rest, no intercourse. Patient should follow-up with your LUNCH TRUCK DRIVER if symptoms have not improved over the next two days. Please return to the emergency room if your symptoms increase or worsen or for any other concerns. Is patient prescribed a controlled substance at d/c from ED?: No Referrals: Selam Holloway MD [Primary Care Provider] - 1-2 days Time of Disposition: 11:16
[2019-07-19 09:55] LABS: Basophils % (A) 1 %; Eosinophils # (A) 0.1 k/uL (0-0.7); Eosinophils % (A) 2 %; HCT 39.3 % (34.0-46.0); HGB 13.1 gm/dL (11.4-16.0); Lymphocytes # (A) 1.7 k/uL (1.0-4.8); Lymphocytes % (A) 31 %; MCH 30.6 pg (25.0-35.0); MCHC 33.3 g/dL (31.0-37.0); MCV 91.8 fL (80.0-100.0); Mean Platelet Volume 7.7; Monocytes # (A) 0.3 k/uL (0-1.0); Monocytes % (A) 5 %; Neutrophils # (A) 3.1 k/uL (1.3-7.7); Neutrophils % (A) 58 %; Platelet Count 299 k/uL (150-450); RBC 4.28 m/uL (3.80-5.40); RDW 12.2 % (11.5-15.5); WBC 5.3 k/uL (3.8-10.6)
[2019-07-19 10:06] LABS: INR 0.9 (<1.2); Partial Thromboplastin Time 26.8 sec (22.0-30.0)
[2019-07-19 10:10] LABS: ALT 15 U/L (4-34); AST 17 U/L (14-36); African American GFR (CKD) >90 (>60 ml/min/1.73 sqM); Albumin 4.2 g/dL (3.5-5.0); Alkaline Phosphatase 64 U/L (38-126); Anion Gap 10 mmol/L; Blood Urea Nitrogen 10 mg/dL (7-17); Calcium 9.6 mg/dL (8.4-10.2); Carbon Dioxide 21 mmol/L (22-30); Chloride 107 mmol/L (98-107); Glucose 97 mg/dL (74-99); Non-African American GFR(CKD) >90 (>60 ml/min/1.73 sqM); Potassium 3.7 mmol/L (3.5-5.1); Sodium 138 mmol/L (137-145); Total Bilirubin 0.5 mg/dL (0.2-1.3)
--- NOTE | 2019-07-19 10:30 | US ---
EXAMINATION TYPE: Transabdominal DATE OF EXAM: 07/19/2019 10:21 AM COMPARISON: US May 29, 2019 CLINICAL HISTORY: pain. spotting with EXAM PERFORMED: Transabdominal (TA) EXAM MEASUREMENTS: GESTATIONAL AGE / DATING Physician Established: (11 weeks/5 days) EDC: 02/02/2020 Dates by LMP: 05/03/2019 (11 weeks/0 days) EDC: 02/07/2020 Dates by First Scan: no IUP seen on first exam Dates by Current Scan for: (11 weeks/3 days) EDC: 02/04/2020 MATERNAL ANATOMY Uterus: 11.2 x 6.8 x 7.4 cm Right Ovary: 2.6 x 2.2 x 2.0 cm Left Ovary: 2.5 x 1.9 x 2.1 cm Post CDS / Adnexa: wnl Presence of free fluid: not appreciated Presence of corpus luteal cyst: not appreciated Presence of subchorionic bleed: not appreciated GESTATION / SURVEY CRL: 4.6 cm (11 weeks/3 days) Yolk Sac (normal less than 6mm): not seem Heart Rate: 167 bpm Rhythm: normal IUP: Viable IUP Date of LMP: 05/03/2019 Single live intrauterine gestation is now present as gestational sac and pole are seen proximal aspect not clearly identified. No free fluid in pelvic cul-de-sac. Both ovaries are seen without concerning extra ovarian adnexal mass. IMPRESSION: There is now confirmation single live intrauterine with mean crown-rump length 4.6 cm corresponding to 11 weeks 3 day old fetus.
[2019-07-19 11:23] LABS: Amorphous Sediment,Urine Rare /hpf; Appearance,Urine Cloudy (Clear); Bacteria,Urine Many /hpf; Bilirubin,Urine Negative (Negative); Blood,Urine Moderate (Negative); Color,Urine Yellow; Glucose,Urine (UA) Negative (Negative); Ketones,Urine Negative (Negative); Leukocyte Esterase,Urine Negative (Negative); Mucus,Urine Many /hpf; Nitrite,Urine Negative (Negative); PH, Urine 6.5 (5.0-8.0); Protein,Urine 1+ (Negative); Specific Gravity,Urine 1.023 (1.001-1.035); Squamous Epithelial Cell,Urine 8 /hpf (0-4); Urobilinogen,Urine <2.0 mg/dL (<2.0); WBC,Urine 1 /hpf (0-5)
[2019-07-19 11:41] VITALS: BP 123/69; PULSE 75
[2019-07-21 14:45] LABS: N. gonorrhoeae,PCR Negative (Neg,Equiv); Neisseria Source Vagina
[2019-07-21 15:08] LABS: C. trachomatis,PCR Negative (Neg,Equiv); Chlamydia trachomatis Source Vagina
== END 2019-07-19 11:39 | disposition home or self-care (01) ==
LOC: EC 09:08
DX: O46.91 Antepartum hemorrhage, unspecified, first trimester (principal); O99.511 Diseases of the respiratory system complicating pregnancy, first trimester; Z3A.11 11 weeks gestation of pregnancy; Z87.891 Personal history of nicotine dependence; Z88.1 Allergy status to other antibiotic agents; Z79.51 Long term (current) use of inhaled steroids
CPT/HCPCS: 36415; 76801; 80053; 81001; 84702; 85025; 85610; 85730; 86900; 86901; 87070; 87491; 87591; 87808; 99284

== ENCOUNTER 2020-12-01 09:48 | Emergency (ER) | payer OTHER ==
[2020-12-01 09:54] VITALS: RESP 18
[2020-12-01] MEDS ORDERED: SODIUM CHLORIDE 0.9% 2,000 ML IV ONE (10:14)
--- NOTE | 2020-12-01 10:18 | ED ---
General Adult HPI - General Chief complaint: Dizziness Stated complaint: Dizziness,Weakness, Time Seen by Provider: 12/01/20 10:04 Source: patient, RN notes reviewed Mode of arrival: ambulatory Limitations: no limitations - History of Present Illness Initial comments: This a 30-year-old female presents emergency Department chief complaint of diz ziness, . Patient states she is A1, states that she had one stillborn, 1 live that after 16 days. Patient states that she found out the last week that she is . She is concerned as she states that she's been told she has high risk she's had preeclampsia and gestational diabetes in the past. Patient states that she just feels really dizzy, feels like she is dehydrated she's had some nausea without vomiting no diarrhea no dysuria no hematuria patient states she had some brown spotting otherwise no bleeding. Patient has not contacted a [employer] yet. - Related Data Home Medications Medication Instructions Recorded Confirmed Acetaminophen [Children's Tylenol] 1 dose PO ONCE PRN 10/26/17 11/10/17 Bismuth Subsalicylate 30 mg PO ONCE PRN 10/26/17 11/10/17 [Pepto-Bismol] Ibuprofen [Motrin Ib] 200 - 400 mg PO Q6H PRN 10/26/17 11/09/17 Ibuprofen/Diphenhydramine HCl 1 cap PO HS PRN 10/26/17 11/09/17 [Advil Pm Liqui-Gels] Albuterol Inhaler (Mhu) [Ventolin 1 - 2 puff INHALATION Q6HR PRN 11/09/17 11/10/17 Hfa Inhaler] Previous Rx's Medication Instructions Recorded HYDROcodone/APAP 5-325MG [[place] 1 tab PO Q6HR PRN #10 tab 10/26/17 5-325] Docusate [Colace] 100 mg PO BID #20 capsule 11/10/17 HYDROcodone/APAP 7.5-325MG [[place] 1 each PO Q4H PRN #30 tab 11/10/17 7.5] Pnv No.95/Ferrous Fum/Folic AC 1 each PO DAILY #30 tablet 05/29/19 [ Multivitamin Tablet] Metoclopramide [Reglan] 10 mg PO TID PRN #15 tab 05/08/21 Allergies Allergy/AdvReac Type Severity Reaction Status Date / Time erythromycin base AdvReac Abdominal Verified 12/01/20 09:49 Pain Review of Systems ROS Statement: Those systems with pertinent positive or pertinent negative responses have been documented in the HPI. ROS Other: All systems not noted in ROS Statement are negative. Past Medical History Past Medical History: Asthma, GERD/Reflux Additional Past Medical History / Comment(s): gestational DM, pre-eclampsia, anemia History of Any Multi-Drug Resistant Organisms: None Reported Past Surgical History: Section Additional Past Surgical History / Comment(s): Colonoscopy Past Anesthesia/Blood Transfusion Reactions: No Reported Reaction Past Psychological History: Anxiety, Bipolar, Depression, PTSD Smoking Status: Current every day smoker Past Alcohol Use History: None Reported Past Drug Use History: Marijuana - Past Family History Mother Family Medical History: No Reported History General Exam Limitations: no limitations General appearance: alert, in no apparent distress Head exam: Present: atraumatic, normocephalic, normal inspection Eye exam: Present: normal appearance, PERRL, EOMI. Absent: scleral icterus, conjunctival injection, periorbital swelling ENT exam: Present: normal exam, mucous membranes moist Neck exam: Present: normal inspection, full ROM. Absent: tenderness, meningismus, lymphadenopathy Respiratory exam: Present: normal lung sounds bilaterally. Absent: respiratory distress, wheezes, rales, rhonchi, stridor Cardiovascular Exam: Present: regular rate, normal rhythm, normal heart sounds. Absent: systolic murmur, diastolic murmur, rubs, gallop, clicks GI/Abdominal exam: Present: soft, normal bowel sounds. Absent: distended, tenderness, guarding, rebound, rigid Neurological exam: Present: alert Psychiatric exam: Present: anxious Skin exam: Present: warm, dry, intact, normal color. Absent: rash Course Vital Signs 12/01/20 12/01/20 09:50 12:15 Temperature 98.6 F Pulse Rate 100 Respiratory 18 18 Rate Blood Pressure 115/74 O2 Sat by Pulse 98 Oximetry Medical Decision Making - Medical Decision Making 30-year-old presented for dizziness and . Patient is improved after some IV fluids. Patient early with hCG of 846. Ultrasound does not reveal entered urine at this time though she has no severe adnexal pain for concerns of ectopic. Patient advised to have close follow-up in 24/48 hours patient agrees to this. She agrees to be discharged with close follow-up and return parameters were discussed. - Lab Data Result diagrams: 12/01/20 10:30 12/01/20 10:30 Lab Results 12/01/20 12/01/20 12/01/20 Range/Units 10:30 10:30 10:42 WBC 7.5 (3.8-10.6) k/uL RBC 4.53 (3.80-5.40) m/uL Hgb 13.8 (11.4-16.0) gm/dL Hct 40.7 (34.0-46.0) % MCV 89.8 (80.0-100.0) fL MCH 30.4 (25.0-35.0) pg MCHC 33.9 (31.0-37.0) g/dL RDW 12.7 (11.5-15.5) % Plt Count 325 (150-450) k/uL MPV 7.5 Neutrophils % 64 % Lymphocytes % 27 % Monocytes % 5 % Eosinophils % 2 % Basophils % 1 % Neutrophils # 4.8 (1.3-7.7) k/uL Lymphocytes # 2.0 (1.0-4.8) k/uL Monocytes # 0.4 (0-1.0) k/uL Eosinophils # 0.2 (0-0.7) k/uL Basophils # 0.1 (0-0.2) k/uL Sodium 136 L (137-145) mmol/L Potassium 4.2 (3.5-5.1) mmol/L Chloride 108 H (98-107) mmol/L Carbon Dioxide 20 L (22-30) mmol/L Anion Gap 8 mmol/L BUN 9 (7-17) mg/dL Creatinine 0.51 L (0.52-1.04) mg/dL Est GFR (CKD-EPI)AfAm >90 (>60 ml/min/1.73 sqM) Est GFR (CKD-EPI)NonAf >90 (>60 ml/min/1.73 sqM) Glucose 117 H (74-99) mg/dL Calcium 9.5 (8.4-10.2) mg/dL Magnesium 2.0 (1.6-2.3) mg/dL Total Bilirubin 0.6 (0.2-1.3) mg/dL AST 21 (14-36) U/L ALT 21 (4-34) U/L Alkaline Phosphatase 70 (38-126) U/L Total Protein 7.0 (6.3-8.2) g/dL Albumin 4.3 (3.5-5.0) g/dL HCG, Quant 844.1 mIU/mL Urine Color Urine Appearance (Clear) Urine pH (5.0-8.0) Ur Specific [place] (1.001-1.035) Urine Protein (Negative) Urine Glucose (UA) (Negative) Urine Ketones (Negative) Urine Blood (Negative) Urine Nitrite (Negative) Urine Bilirubin (Negative) Urine Urobilinogen (<2.0) mg/dL Ur Leukocyte Esterase (Negative) Urine WBC (0-5) /hpf Ur Squamous Epith Cells (0-4) /hpf Urine Mucus (None) /hpf Blood Type O Positive Blood Type Recheck O Pos Bld Type Recheck Status No 12/01/20 Range/Units 11:50 WBC (3.8-10.6) k/uL RBC (3.80-5.40) m/uL Hgb (11.4-16.0) gm/dL Hct (34.0-46.0) % MCV (80.0-100.0) fL MCH (25.0-35.0) pg MCHC (31.0-37.0) g/dL RDW (11.5-15.5) % Plt Count (150-450) k/uL MPV Neutrophils % % Lymphocytes % % Monocytes % % Eosinophils % % Basophils % % Neutrophils # (1.3-7.7) k/uL Lymphocytes # (1.0-4.8) k/uL Monocytes # (0-1.0) k/uL Eosinophils # (0-0.7) k/uL Basophils # (0-0.2) k/uL Sodium (137-145) mmol/L Potassium (3.5-5.1) mmol/L Chloride (98-107) mmol/L Carbon Dioxide (22-30) mmol/L Anion Gap mmol/L BUN (7-17) mg/dL Creatinine (0.52-1.04) mg/dL Est GFR (CKD-EPI)AfAm (>60 ml/min/1.73 sqM) Est GFR (CKD-EPI)NonAf (>60 ml/min/1.73 sqM) Glucose (74-99) mg/dL Calcium (8.4-10.2) mg/dL Magnesium (1.6-2.3) mg/dL Total Bilirubin (0.2-1.3) mg/dL AST (14-36) U/L ALT (4-34) U/L Alkaline Phosphatase (38-126) U/L Total Protein (6.3-8.2) g/dL Albumin (3.5-5.0) g/dL HCG, Quant mIU/mL Urine Color Light Yellow Urine Appearance Clear (Clear) Urine pH 7.5 (5.0-8.0) Ur Specific [place] 1.010 (1.001-1.035) Urine Protein Negative (Negative) Urine Glucose (UA) Negative (Negative) Urine Ketones Negative (Negative) Urine Blood Trace H (Negative) Urine Nitrite Negative (Negative) Urine Bilirubin Negative (Negative) Urine Urobilinogen <2.0 (<2.0) mg/dL Ur Leukocyte Esterase Negative (Negative) Urine WBC 1 (0-5) /hpf Ur Squamous Epith Cells 1 (0-4) /hpf Urine Mucus Rare H (None) /hpf Blood Type Blood Type Recheck Bld Type Recheck Status Disposition Clinical Impression: Dizziness, Disposition: HOME SELF-CARE Condition: Stable Instructions (If sedation given, give patient instructions): Dizziness (ED) Additional Instructions: Please return to the Emergency Department if symptoms worsen or any other concerns. Prescriptions: Metoclopramide [Reglan] 10 mg PO TID PRN #15 tab PRN Reason: nausea Is patient prescribed a controlled substance at d/c from ED?: No Referrals: Selam Holloway MD [Primary Care Provider] - 1-2 days Time of Disposition: 12:49
[2020-12-01 10:35] LABS: Basophils # (A) 0.1 k/uL (0-0.2); Basophils % (A) 1 %; Eosinophils # (A) 0.2 k/uL (0-0.7); Eosinophils % (A) 2 %; HCT 40.7 % (34.0-46.0); HGB 13.8 gm/dL (11.4-16.0); Lymphocytes % (A) 27 %; MCH 30.4 pg (25.0-35.0); MCHC 33.9 g/dL (31.0-37.0); MCV 89.8 fL (80.0-100.0); Mean Platelet Volume 7.5; Monocytes # (A) 0.4 k/uL (0-1.0); Monocytes % (A) 5 %; Neutrophils # (A) 4.8 k/uL (1.3-7.7); Neutrophils % (A) 64 %; Platelet Count 325 k/uL (150-450); RBC 4.53 m/uL (3.80-5.40); RDW 12.7 % (11.5-15.5); WBC 7.5 k/uL (3.8-10.6)
[2020-12-01 10:59] LABS: ALT 21 U/L (4-34); AST 21 U/L (14-36); African American GFR (CKD) >90 (>60 ml/min/1.73 sqM); Albumin 4.3 g/dL (3.5-5.0); Alkaline Phosphatase 70 U/L (38-126); Anion Gap 8 mmol/L; Blood Urea Nitrogen 9 mg/dL (7-17); Calcium 9.5 mg/dL (8.4-10.2); Carbon Dioxide 20 mmol/L (22-30); Chloride 108 mmol/L (98-107); Glucose 117 mg/dL (74-99); Non-African American GFR(CKD) >90 (>60 ml/min/1.73 sqM); Potassium 4.2 mmol/L (3.5-5.1); Sodium 136 mmol/L (137-145); Total Bilirubin 0.6 mg/dL (0.2-1.3)
[2020-12-01 11:16] LABS: HCG,Quantitative Serum 844.1 mIU/mL
--- NOTE | 2020-12-01 11:54 | US ---
EXAMINATION TYPE: Transabdominal DATE OF EXAM: 12/01/2020 11:23 AM COMPARISON: NONE CLINICAL HISTORY: pain. Spotting EXAM PERFORMED: Transvaginal (TV) and Transabdominal (TA) EXAM MEASUREMENTS: GESTATIONAL AGE / DATING Physician Established: Not yet established Dates by LMP: 09/26/2020 (9 weeks/3 days) EDC: 07/03/2021 Dates by First Scan: No previous this is first scan Dates by Current Scan for: Unable to date by today's study MATERNAL ANATOMY Uterus: 8.2 x 4.8 x 6.6 Right Ovary: 3.8 x 2.2 x 4.1 Left Ovary: 2.1 x 1.3 x 2.6 Post CDS / Adnexa: wnl Presence of free fluid: none Presence of corpus luteal cyst: 1.6 x 1.6 x 1.9 cm solid lesion right ovary could represent corpus slade teal cyst. GESTATION / SURVEY Endometrium measures 1.4 cm, no gestational sac seen at this time. Date of LMP: 09/26/2020, does not correlate Beta HcG (if available): 844 No ultrasound evidence for IUP at this time, recommend serial follow up beta HcG. Urinary bladder is sonolucent. Posterior wall is normal. IMPRESSION: 1. No intrauterine identified. Correlate for spontaneous and ectopic patency. Foll ow-up is recommended. 2. Solid lesion right ovary. Follow up recommended.
[2020-12-01] MEDS ORDERED: METOCLOPRAMIDE 5 MG/ML 2 ML VIAL IVP STA (12:12)
[2020-12-01 12:14] LABS: Appearance,Urine Clear (Clear); Bilirubin,Urine Negative (Negative); Blood,Urine Trace (Negative); Color,Urine Light Yellow; Glucose,Urine (UA) Negative (Negative); Ketones,Urine Negative (Negative); Leukocyte Esterase,Urine Negative (Negative); Mucus,Urine Rare /hpf; Nitrite,Urine Negative (Negative); PH, Urine 7.5 (5.0-8.0); Protein,Urine Negative (Negative); Squamous Epithelial Cell,Urine 1 /hpf (0-4); Urobilinogen,Urine <2.0 mg/dL (<2.0); WBC,Urine 1 /hpf (0-5)
[2020-12-01] MEDS ORDERED: diphenhydrAMINE 50 MG/ML 1 ML VIAL IVP STA (12:47)
[2020-12-01 13:11] VITALS: BP 113/68; PULSE 80; TEMP 98.2
== END 2020-12-01 13:11 | disposition home or self-care (01) ==
LOC: EC 09:48
DX: O26.891 Other specified pregnancy related conditions, first trimester (principal); R42 Dizziness and giddiness; R53.1 Weakness; R11.0 Nausea; O99.511 Diseases of the respiratory system complicating pregnancy, first trimester; J45.909 Unspecified asthma, uncomplicated; O99.611 Diseases of the digestive system complicating pregnancy, first trimester; K21.9 Gastro-esophageal reflux disease without esophagitis; O99.341 Other mental disorders complicating pregnancy, first trimester; F41.9 Anxiety disorder, unspecified; F32.9 Major depressive disorder, single episode, unspecified; O99.331 Smoking (tobacco) complicating pregnancy, first trimester; F12.90 Cannabis use, unspecified, uncomplicated; F17.200 Nicotine dependence, unspecified, uncomplicated; Z87.59 Personal history of other complications of pregnancy, childbirth and the puerperium; Z79.899 Other long term (current) drug therapy; Z79.1 Long term (current) use of non-steroidal anti-inflammatories (NSAID); Z79.51 Long term (current) use of inhaled steroids; Z3A.01 Less than 8 weeks gestation of pregnancy
CPT/HCPCS: 36415; 86900; 86901; 80053; 83735; 85025; 81001; 84702; 76801; 76817; 99285; 96374; 96375; 96361 ×2; J1200; J2765

== ENCOUNTER 2020-12-09 14:02 | Emergency (ER) | payer OTHER ==
[2020-12-09 14:07] VITALS: RESP 18; TEMP 97.9
--- NOTE | 2020-12-09 14:44 | ED ---
General Adult HPI - General Chief complaint: Vaginal Bleeding Stated complaint: Vag Bleeding, 5 weeks preg Time Seen by Provider: 12/09/20 14:12 Source: patient Mode of arrival: ambulatory Limitations: no limitations - History of Present Illness Initial comments: 30-year-old female currently estimated to be 4-5 weeks presents to the emergency room for vaginal bleeding. Patient reports she is not sure when her last period was but thinks it was about 4-5 weeks ago. Patient reports she has had vaginal bleeding for 2 weeks now. States it looks like old blood in his light in nature. However today was a little heavier which prompted her to come to the ER. Patient denies any abdominal pain. Patient states she had an ultrasound recently that did not show anything in the uterus.Patient has no other complaints at this time including shortness of breath, chest pain, abdominal pain, nausea or vomiting, headache, or visual changes. - Related Data Home Medications Medication Instructions Recorded Confirmed Acetaminophen [Children's Tylenol] 1 dose PO ONCE PRN 10/26/17 11/10/17 Bismuth Subsalicylate 30 mg PO ONCE PRN 10/26/17 11/10/17 [Pepto-Bismol] Ibuprofen [Motrin Ib] 200 - 400 mg PO Q6H PRN 10/26/17 11/09/17 Ibuprofen/Diphenhydramine HCl 1 cap PO HS PRN 10/26/17 11/09/17 [Advil Pm Liqui-Gels] Albuterol Inhaler (Mhu) [Ventolin 1 - 2 puff INHALATION Q6HR PRN 11/09/1711/10 Hfa Inhaler] Previous Rx's Medication Instructions Recorded HYDROcodone/APAP 5-325MG [[place] 1 tab PO Q6HR PRN #10 tab 10/26/17 5-325] Docusate [Colace] 100 mg PO BID #20 capsule 11/10/17 HYDROcodone/APAP 7.5-325MG [[place] 1 each PO Q4H PRN #30 tab 11/10/17 7.5] Pnv No.95/Ferrous Fum/Folic AC 1 each PO DAILY #30 tablet 05/29/19 [ Multivitamin Tablet] Metoclopramide [Reglan] 10 mg PO TID PRN #15 tab 12/01/20 Allergies Allergy/AdvReac Type Severity Reaction Status Date / Time erythromycin base AdvReac Abdominal Verified 12/09/20 14:04 Pain Review of Systems ROS Statement: Those systems with pertinent positive or pertinent negative responses have been documented in the HPI. ROS Other: All systems not noted in ROS Statement are negative. Past Medical History Past Medical History: Asthma, GERD/Reflux Additional Past Medical History / Comment(s): gestational DM, pre-eclampsia, anemia History of Any Multi-Drug Resistant Organisms: None Reported Past Surgical History: Section Additional Past Surgical History / Comment(s): Colonoscopy Past Anesthesia/Blood Transfusion Reactions: No Reported Reaction Past Psychological History: Anxiety, Bipolar, Depression, PTSD Smoking Status: Current every day smoker Past Alcohol Use History: None Reported Past Drug Use History: Marijuana - Past Family History Mother Family Medical History: No Reported History General Exam Limitations: no limitations General appearance: alert, in no apparent distress Head exam: Present: atraumatic, normocephalic, normal inspection Eye exam: Present: normal appearance, PERRL, EOMI. Absent: scleral icterus, conjunctival injection, periorbital swelling ENT exam: Present: normal exam, mucous membranes moist Neck exam: Present: normal inspection. Absent: tenderness, meningismus, lymphadenopathy Respiratory exam: Present: normal lung sounds bilaterally. Absent: respiratory distress, wheezes, rales, rhonchi, stridor Cardiovascular Exam: Present: regular rate, normal rhythm, normal heart sounds. Absent: systolic murmur, diastolic murmur, rubs, gallop, clicks GI/Abdominal exam: Present: soft, normal bowel sounds. Absent: distended, tenderness, guarding, rebound, rigid External exam: Present: normal external exam. Absent: erythema, swelling, lesions, lacerations, ecchymosis Speculum exam: Present: vaginal bleeding (Slight vaginal bleeding from cervix.). Absent: normal speculum exam, erythema, vaginal discharge, cervical discharge, foreign body, tissue, laceration By manual exam: Present: normal by manual exam Course Vital Signs 12/09/20 12/09/20 14:04 16:20 Temperature 97.9 F Pulse Rate 102 H 100 Respiratory 18 18 Rate Blood Pressure 99/68 105/98 O2 Sat by Pulse 99 99 Oximetry Medical Decision Making - Medical Decision Making Vitals are stable. Patient is well-appearing. No abdominal pain. Bleeding is minimal. CBC CMP unremarkable. Urinalysis does show rare bacteria however 10 squamous cells. Patient is O+ blood type. ultrasound did show a possible hCG has increased from 800-16,000 in the past 8 days. However ultrasound is not sure any definitive presses in the uterus. There is possibly a mean sac diameter of 6 mm. I did speak with on-call physician for patient's DOOR MAKER Dr Alan Beltran this elevated hCG was obvious intrauterine findings. She recommends calling office tomorrow for an appointment. She will return here for any worsening symptoms. - Lab Data Result diagrams: 12/09/20 14:30 12/09/20 14:30 Lab Results 12/09/20 12/09/20 12/09/20 Range/Units 14:30 14:30 14:30 WBC 7.4 (3.8-10.6) k/uL RBC 4.55 (3.80-5.40) m/uL Hgb 13.4 (11.4-16.0) gm/dL Hct 42.2 (34.0-46.0) % MCV 92.8 (80.0-100.0) fL MCH 29.4 (25.0-35.0) pg MCHC 31.6 (31.0-37.0) g/dL RDW 13.3 (11.5-15.5) % Plt Count 356 (150-450) k/uL MPV 7.4 Neutrophils % 64 % Lymphocytes % 27 % Monocytes % 4 % Eosinophils % 2 % Basophils % 1 % Neutrophils # 4.7 (1.3-7.7) k/uL Lymphocytes # 2.0 (1.0-4.8) k/uL Monocytes # 0.3 (0-1.0) k/uL Eosinophils # 0.2 (0-0.7) k/uL Basophils # 0.1 (0-0.2) k/uL Sodium 140 (137-145) mmol/L Potassium 4.1 (3.5-5.1) mmol/L Chloride 107 (98-107) mmol/L Carbon Dioxide 23 (22-30) mmol/L Anion Gap 10 mmol/L BUN 18 H (7-17) mg/dL Creatinine 0.86 (0.52-1.04) mg/dL Est GFR (CKD-EPI)AfAm >90 (>60 ml/min/1.73 sqM) Est GFR (CKD-EPI)NonAf >90 (>60 ml/min/1.73 sqM) Glucose 87 (74-99) mg/dL Calcium 9.8 (8.4-10.2) mg/dL Total Bilirubin 0.3 (0.2-1.3) mg/dL AST 17 (14-36) U/L ALT 16 (4-34) U/L Alkaline Phosphatase 77 (38-126) U/L Total Protein 7.0 (6.3-8.2) g/dL Albumin 4.5 (3.5-5.0) g/dL HCG, Quant 12192.5 mIU/mL Urine Color Yellow Urine Appearance Cloudy H (Clear) Urine pH 6.5 (5.0-8.0) Ur Specific [place] 1.028 (1.001-1.035) Urine Protein Trace H (Negative) Urine Glucose (UA) Negative (Negative) Urine Ketones Negative (Negative) Urine Blood Moderate H (Negative) Urine Nitrite Negative (Negative) Urine Bilirubin Negative (Negative) Urine Urobilinogen <2.0 (<2.0) mg/dL Ur Leukocyte Esterase Negative (Negative) Urine RBC 1 (0-5) /hpf Urine WBC 2 (0-5) /hpf Ur Squamous Epith Cells 10 H (0-4) /hpf Amorphous Sediment Moderate H (None) /hpf Urine Bacteria Rare H (None) /hpf Urine Mucus Many H (None) /hpf Blood Type Blood Type Recheck Bld Type Recheck Status 12/09/20 Range/Units 14:30 WBC (3.8-10.6) k/uL RBC (3.80-5.40) m/uL Hgb (11.4-16.0) gm/dL Hct (34.0-46.0) % MCV (80.0-100.0) fL MCH (25.0-35.0) pg MCHC (31.0-37.0) g/dL RDW (11.5-15.5) % Plt Count (150-450) k/uL MPV Neutrophils % % Lymphocytes % % Monocytes % % Eosinophils % % Basophils % % Neutrophils # (1.3-7.7) k/uL Lymphocytes # (1.0-4.8) k/uL Monocytes # (0-1.0) k/uL Eosinophils # (0-0.7) k/uL Basophils # (0-0.2) k/uL Sodium (137-145) mmol/L Potassium (3.5-5.1) mmol/L Chloride (98-107) mmol/L Carbon Dioxide (22-30) mmol/L Anion Gap mmol/L BUN (7-17) mg/dL Creatinine (0.52-1.04) mg/dL Est GFR (CKD-EPI)AfAm (>60 ml/min/1.73 sqM) Est GFR (CKD-EPI)NonAf (>60 ml/min/1.73 sqM) Glucose (74-99) mg/dL Calcium (8.4-10.2) mg/dL Total Bilirubin (0.2-1.3) mg/dL AST (14-36) U/L ALT (4-34) U/L Alkaline Phosphatase (38-126) U/L Total Protein (6.3-8.2) g/dL Albumin (3.5-5.0) g/dL HCG, Quant mIU/mL Urine Color Urine Appearance (Clear) Urine pH (5.0-8.0) Ur Specific [place] (1.001-1.035) Urine Protein (Negative) Urine Glucose (UA) (Negative) Urine Ketones (Negative) Urine Blood (Negative) Urine Nitrite (Negative) Urine Bilirubin (Negative) Urine Urobilinogen (<2.0) mg/dL Ur Leukocyte Esterase (Negative) Urine RBC (0-5) /hpf Urine WBC (0-5) /hpf Ur Squamous Epith Cells (0-4) /hpf Amorphous Sediment (None) /hpf Urine Bacteria (None) /hpf Urine Mucus (None) /hpf Blood Type O Positive Blood Type Recheck O Pos Bld Type Recheck Status No Disposition Clinical Impression: Threatened miscarriage Disposition: ADMITTED IP TO THIS HOSP Condition: Good Instructions (If sedation given, give patient instructions): Threatened Miscarriage (ED) Additional Instructions: Please call the office of your OBGYN tomorrow to make an appointment. Return to the emergency room for any worsening symptoms. Is patient prescribed a controlled substance at d/c from ED?: No Referrals: Selam Holloway MD [Primary Care Provider] - 1-2 days Time of Disposition: 16:22
[2020-12-09 14:46] LABS: Basophils # (A) 0.1 k/uL (0-0.2); Basophils % (A) 1 %; Eosinophils # (A) 0.2 k/uL (0-0.7); Eosinophils % (A) 2 %; HCT 42.2 % (34.0-46.0); HGB 13.4 gm/dL (11.4-16.0); Lymphocytes % (A) 27 %; MCH 29.4 pg (25.0-35.0); MCHC 31.6 g/dL (31.0-37.0); MCV 92.8 fL (80.0-100.0); Mean Platelet Volume 7.4; Monocytes # (A) 0.3 k/uL (0-1.0); Monocytes % (A) 4 %; Neutrophils # (A) 4.7 k/uL (1.3-7.7); Neutrophils % (A) 64 %; Platelet Count 356 k/uL (150-450); RBC 4.55 m/uL (3.80-5.40); RDW 13.3 % (11.5-15.5); WBC 7.4 k/uL (3.8-10.6)
[2020-12-09 14:55] LABS: Amorphous Sediment,Urine Moderate /hpf; Appearance,Urine Cloudy (Clear); Bacteria,Urine Rare /hpf; Bilirubin,Urine Negative (Negative); Blood,Urine Moderate (Negative); Color,Urine Yellow; Glucose,Urine (UA) Negative (Negative); Ketones,Urine Negative (Negative); Leukocyte Esterase,Urine Negative (Negative); Mucus,Urine Many /hpf; Nitrite,Urine Negative (Negative); PH, Urine 6.5 (5.0-8.0); Protein,Urine Trace (Negative); RBC,Urine 1 /hpf (0-5); Specific Gravity,Urine 1.028 (1.001-1.035); Squamous Epithelial Cell,Urine 10 /hpf (0-4); Urobilinogen,Urine <2.0 mg/dL (<2.0); WBC,Urine 2 /hpf (0-5)
[2020-12-09 15:01] LABS: ALT 16 U/L (4-34); AST 17 U/L (14-36); African American GFR (CKD) >90 (>60 ml/min/1.73 sqM); Albumin 4.5 g/dL (3.5-5.0); Alkaline Phosphatase 77 U/L (38-126); Anion Gap 10 mmol/L; Blood Urea Nitrogen 18 mg/dL (7-17); Calcium 9.8 mg/dL (8.4-10.2); Carbon Dioxide 23 mmol/L (22-30); Chloride 107 mmol/L (98-107); Glucose 87 mg/dL (74-99); Non-African American GFR(CKD) >90 (>60 ml/min/1.73 sqM); Potassium 4.1 mmol/L (3.5-5.1); Sodium 140 mmol/L (137-145); Total Bilirubin 0.3 mg/dL (0.2-1.3)
--- NOTE | 2020-12-09 15:18 | US ---
EXAMINATION TYPE: Transabdominal DATE OF EXAM: 12/09/2020 2:58 PM COMPARISON: US CLINICAL HISTORY: pain. Pt states vaginal bleeding x 2 weeks that has gotten worse recently/ pt state s having US at Dr's office and a gestational sac was visualized within uterus EXAM PERFORMED: Transabdominal (TA) EXAM MEASUREMENTS: GESTATIONAL AGE / DATING Physician Established: Not yet established Dates by LMP: (4 weeks/3 days) EDC: 08/15/2021 Dates by First Scan: No IUP visualized Dates by Current Scan for: Unable to date by today's study, possible gestational sac within uterus to o small to date MATERNAL ANATOMY Uterus: 8.2 x 5.0 x 6.6 cm Right Ovary: 2.8 x 2.3 x 2.3 cm Left Ovary: 2.8 x 1.8 x 2.2 cm Post CDS / Adnexa: wnl Presence of free fluid: No Presence of corpus luteal cyst: Right Ovary= 1.8 x 1.7 x 1.6 cm GESTATION / SURVEY MSD: 0.6 cm Too small to calculate Date of LMP: Pt unsure Beta HcG (if available): Not available at this time IMPRESSION: No definite intrauterine gestational sac identified. Follow-up exam recommended in 10-[address] a living fetus of clinically indicated. No evidence of ectopic .
[2020-12-09 15:52] LABS: HCG,Quantitative Serum 16389.5 mIU/mL
[2020-12-09 16:20] VITALS: BP 105/98; PULSE 100
== END 2020-12-09 16:48 | disposition other institution (70) ==
LOC: EC 14:02
DX: O20.0 Threatened abortion (principal); O99.511 Diseases of the respiratory system complicating pregnancy, first trimester; J45.909 Unspecified asthma, uncomplicated; O99.611 Diseases of the digestive system complicating pregnancy, first trimester; K21.9 Gastro-esophageal reflux disease without esophagitis; O99.331 Smoking (tobacco) complicating pregnancy, first trimester; F17.200 Nicotine dependence, unspecified, uncomplicated; Z88.1 Allergy status to other antibiotic agents; Z79.1 Long term (current) use of non-steroidal anti-inflammatories (NSAID); Z87.59 Personal history of other complications of pregnancy, childbirth and the puerperium; Z3A.01 Less than 8 weeks gestation of pregnancy
CPT/HCPCS: 36415; 76801; 80053; 81001; 84702; 85025; 86900; 86901; 99284

== ENCOUNTER 2020-12-10 15:31 | Emergency (ER) | payer OTHER ==
[2020-12-10 15:45] VITALS: BP 102/69; PULSE 99; RESP 16; TEMP 97.8
--- NOTE | 2020-12-10 16:45 | ED ---
Female Urogenital HPI - General Chief complaint: Vaginal Bleeding Stated complaint: early , vaginal bleeding Time Seen by Provider: 12/10/20 15:45 Source: patient Mode of arrival: ambulatory Limitations: no limitations - History of Present Illness Initial comments: Patient is a 30-year-old female, currently 4-5 weeks , presenting to the emergency department for a recheck. Patient states she has basically been having vaginal bleeding since November 29, since she found out she was . . She is also complaining of some abdominal cramping. This is patient's third visit for same complaint. Patient was here yesterday, had complete blood workup, an ultrasound, ultrasound revealed a possible gestational sac but no confirmed IUP. Her beta hCG has been going up since her last visit a week and half ago. She denies any fevers or chills, some mild nausea but no vomiting. She states the bleeding has just been continuous. She did call her ASSOCIATE [employer] today, Dr. Chavez's office who told her to return to the ER. She has no further complaints at this time. Upon arrival to the ER, her vitals are stable. - Related Data Home Medications Medication Instructions Recorded Confirmed Acetaminophen [Children's Tylenol] 1 dose PO ONCE PRN 10/26/17 11/10/17 Bismuth Subsalicylate 30 mg PO ONCE PRN 10/26/17 11/10/17 [Pepto-Bismol] Ibuprofen [Motrin Ib] 200 - 400 mg PO Q6H PRN 10/26/17 11/09/17 Ibuprofen/Diphenhydramine HCl 1 cap PO HS PRN 10/26/17 11/09/17 [Advil Pm Liqui-Gels] Albuterol Inhaler (Mhu) [Ventolin 1 - 2 puff INHALATION Q6HR PRN 11/09/17 11/10/17 Hfa Inhaler] Previous Rx's Medication Instructions Recorded HYDROcodone/APAP 5-325MG [[place] 1 tab PO Q6HR PRN #10 tab 10/26/17 5-325] Docusate [Colace] 100 mg PO BID #20 capsule 11/10/17 HYDROcodone/APAP 7.5-325MG [[place] 1 each PO Q4H PRN #30 tab 11/10/17 7.5] Pnv No.95/Ferrous Fum/Folic AC 1 each PO DAILY #30 tablet 05/29/19 [ Multivitamin Tablet] Metoclopramide [Reglan] 10 mg PO TID PRN #15 tab 12/01/20 Allergies Allergy/AdvReac Type Severity Reaction Status Date / Time erythromycin base AdvReac Abdominal Verified 12/10/20 15:41 Pain Review of Systems ROS Statement: Those systems with pertinent positive or pertinent negative responses have been documented in the HPI. ROS Other: All systems not noted in ROS Statement are negative. Past Medical History Past Medical History: Asthma, GERD/Reflux Additional Past Medical History / Comment(s): gestational DM, pre-eclampsia, anemia History of Any Multi-Drug Resistant Organisms: None Reported Past Surgical History: Section Additional Past Surgical History / Comment(s): Colonoscopy Past Anesthesia/Blood Transfusion Reactions: No Reported Reaction Past Psychological History: Anxiety, Bipolar, Depression, PTSD Smoking Status: Current every day smoker Past Alcohol Use History: None Reported Past Drug Use History: Marijuana - Past Family History Mother Family Medical History: No Reported History General Exam - General Exam Comments Initial Comments: GENERAL: Patient is well-developed and well-nourished. Patient is nontoxic and in no acute distress. HEAD: Atraumatic, normocephalic. EYES: Pupils equal round and reactive to light, extraocular movements intact, sclera anicteric, conjunctiva are normal. Eyelids were unremarkable. ENT: TMs normal, nares patent, oropharynx clear without exudates. Moist mucous membranes. NECK: Normal range of motion, supple without lymphadenopathy or JVD. LUNGS: Unlabored respirations. Breath sounds clear to auscultation bilaterally and equal. No wheezes rales or rhonchi. HEART: Regular rate and rhythm without murmurs, rubs or gallops. ABDOMEN: Soft, nontender, normoactive bowel sounds. No guarding, no rebound. No masses appreciated. : Deferred MUSCULOSKELETAL: Normal extremities with adequate strength and normal range of motion, no pitting or edema. No clubbing or cyanosis. NEUROLOGICAL: Patient is alert and oriented x 3. Motor and sensory are also intact. Cranial nerves II through XII grossly intact. Symmetrical smile. Normal speech, normal gait. PSYCH: Normal mood, normal affect. SKIN: Warm, Dry, normal turgor, no rashes or lesions noted. Limitations: no limitations Course Vital Signs 12/10/20 15:41 Temperature 97.8 F Pulse Rate 99 Respiratory 16 Rate Blood Pressure 102/69 O2 Sat by Pulse 100 Oximetry Medical Decision Making - Medical Decision Making Patient is a 30-year-old female, currently 4-5 weeks presenting for vaginal bleeding. This is patient's third visit in the past 2 weeks for same complaint. She had full blood work and ultrasound yesterday, no confirmed IUP at this time, possible gestational sac on ultrasound yesterday. She continues have some mild cramping. No abdominal pain on palpation today. He did order lab work and an ultrasound however when ultrasound went to go for an ultrasound, patient had eloped. Patient was no where to be found in the ER. Case discussed with Dr. Ocasio. Disposition Clinical Impression: Vaginal bleeding, Threatened Disposition: Left Against Medical Advice Condition: Stable Is patient prescribed a controlled substance at d/c from ED?: No Referrals: Selam Holloway MD [Primary Care Provider] - 1-2 days
== END 2020-12-10 16:59 | disposition left against medical advice (07) ==
LOC: EC 15:31
DX: O20.0 Threatened abortion (principal); Z3A.01 Less than 8 weeks gestation of pregnancy; Z53.29 Procedure and treatment not carried out because of patient's decision for other reasons
CPT/HCPCS: 99283

== ENCOUNTER 2021-04-03 02:18 | Inpatient (IN) | payer OTHER ==
--- NOTE | 2021-04-03 03:28 | P.HPOB ---
History of Present Illness H&P Date: 04/03/21 Chief Complaint: Leaking of fluid This patient is a 30-year-old 6 para 3 living 2 female estimated date of confinement 08/11/2021 estimated gestational age 21-3/7 weeks gestation who presents to labor and delivery with complaints of gush of fluid at approximately 1:30 this morning. Patient's care is per Dr. Garland and complicated by history of 2 previous demises and also a delivery at 28 weeks. Patient also apparently uses marijuana and history of tobacco use. Patient states that she's had a tele-visit with maternal medicine at [facility]. Patient ultrasound per [facility] at approximately 18 weeks which did show abnormal umbilical artery Dopplers. Patient does have a history of gestational diabetes with previous and her 1 hour Glucola which was done earlier was 170. Patient's past obstetrical history is also significant for a classical section. Review of Systems Constitutional: Reports as per HPI Genitourinary: Reports Menstruation: Reports amenorrhea Past Medical History Past Medical History: Asthma, GERD/Reflux Additional Past Medical History / Comment(s): gestational DM, pre-eclampsia, anemia History of Any Multi-Drug Resistant Organisms: None Reported Past Surgical History: Section Additional Past Surgical History / Comment(s): Colonoscopy Past Anesthesia/Blood Transfusion Reactions: No Reported Reaction Past Psychological History: Anxiety, Bipolar, Depression, PTSD Smoking Status: Current every day smoker Past Alcohol Use History: None Reported Past Drug Use History: Marijuana - Past Family History Mother Family Medical History: No Reported History Medications and Allergies Home Medications Medication Instructions Recorded Confirmed Type Acetaminophen [Children's Tylenol] 1 dose PO ONCE PRN 10/26/17 11/10/17 History Bismuth Subsalicylate 30 mg PO ONCE PRN 10/26/17 04/03/21 History [Pepto-Bismol] HYDROcodone/APAP 5-325MG [[place] 1 tab PO Q6HR PRN #10 tab 10/26/17 04/03/21 Rx 5-325] Ibuprofen [Motrin Ib] 200 - 400 mg PO Q6H PRN 10/26/17 04/03/21 History Ibuprofen/Diphenhydramine HCl 1 cap PO HS PRN 10/26/17 04/03/21 History [Advil Pm Liqui-Gels] Albuterol Inhaler (Mhu) [Ventolin 1 - 2 puff INHALATION Q6HR PRN 11/09/17 11/10/17 History Hfa Inhaler] Docusate [Colace] 100 mg PO BID #20 capsule 11/10/17 04/03/21 Rx HYDROcodone/APAP 7.5-325MG [[place] 1 each PO Q4H PRN #30 tab 11/10/17 04/03/21 Rx 7.5] Pnv No.95/Ferrous Fum/Folic AC 1 each PO DAILY #30 tablet 05/29/19 Rx [ Multivitamin Tablet] Metoclopramide [Reglan] 10 mg PO TID PRN #15 tab 12/01/20 04/03/21 Rx Aspirin 1 tab PO ONCE 04/03/21 04/03/21 History Calcium Carbonate [Calcium] 1 tab PO ONCE 04/03/21 04/03/21 History Allergies Allergy/AdvReac Type Severity Reaction Status Date / Time erythromycin base AdvReac Abdominal Verified 04/03/21 03:04 Pain Exam Intake and Output 04/02/21 04/02/21 04/03/21 14:59 22:59 06:59 Other: Weight 73.482 kg - OBG Physical Exam Abdomen: bowel sounds normal, no diffuse tenderness, no bruit present, no guarding noted, no hepatomegaly, no splenomegaly, no mass Vulva: both: normal Vagina: Large amount of clear amniotic fluid Vagina: no discharge Cervix: Cervix is visualized and appears closed, no digital exam is done Uterus: enlarged Results blood work shows she is O positive, rubella immune, RPR is nonreactive, hepatitis B is negative, HIV is nonreactive, maternity T 21 was negative, early Glucola was 170. Assessment and Plan Assessment: This is a 30-year-old 6 para 3 female estimated gestational age 21-3/7 weeks with positive amnio sure and growth rupture of membranes. She has a significant obstetrical history of previous demises and this has had abnormal Dopplers on her ultrasound at 19 weeks. I discussed with the patient and her family the poor prognosis given her gestational age. She understands at this point, for the most part she is considered previable. Plan at this time is admission for IV antibiotics, observation, check a CBC, and a complete obstetrical ultrasound. I also discussed with the patient that tomorrow we would discuss with maternal- medicine and make a decision as to when a possible transfer could take place, possibly at 22 weeks. She wishes to continue care with [facility] maternal- medicine and Dr. Garland certainly will contact them tomorrow to make a treatment plan. All the patient's questions are answered. (1) 21 weeks gestation of Current Visit: Yes Status: Acute Code(s): Z3A.21 - 21 WEEKS GESTATION OF SNOMED Code(s): 75168490 (2) premature rupture of membranes Current Visit: Yes Status: Acute Code(s): O42.919 - PRETRM FARIDA ROM, UNSP TIME BETW RUPT AND ONST LABR, UNSP TRI SNOMED Code(s): 658821914 (3) Gestational diabetes Current Visit: Yes Status: Acute Code(s): O24.419 - GESTATIONAL DIABETES MELLITUS IN , UNSP CONTROL SNOMED Code(s): 45130970 (4) History of classical section Current Visit: Yes Status: Acute Code(s): Z98.891 - HISTORY OF UTERINE SCAR FROM PREVIOUS SURGERY SNOMED Code(s): 803599056
[2021-04-03 03:33] LABS: Appearance,Urine Cloudy (Clear); Bacteria,Urine Rare /hpf; Bilirubin,Urine Negative (Negative); Blood,Urine Trace (Negative); Color,Urine Colorless; Glucose,Urine (UA) Negative (Negative); Ketones,Urine Negative (Negative); Leukocyte Esterase,Urine Negative (Negative); Nitrite,Urine Negative (Negative); PH, Urine 6.5 (5.0-8.0); Protein,Urine 1+ (Negative); RBC,Urine 2 /hpf (0-5); Specific Gravity,Urine 1.004 (1.001-1.035); Squamous Epithelial Cell,Urine 10 /hpf (0-4); Urobilinogen,Urine <2.0 mg/dL (<2.0); WBC,Urine 2 /hpf (0-5)
[2021-04-03] MEDS: LACTATED RINGERS 1,000 ML IV SCH ×2 (03:40→15:33)
[2021-04-03 03:44] LABS: Amphetamine Screen,Urine Not Detected (NotDetected); Barbiturate Screen,Urine Not Detected (NotDetected); Benzodiazepines Screen,Urine Not Detected (NotDetected); Cocaine Screen,Urine Not Detected (NotDetected); Methadone Screen, Urine Not Detected (NotDetected); Opiate Screen,Urine Not Detected (NotDetected); Oxycodone Screen, Urine Not Detected (NotDetected); Phencyclidine Screen,Urine Not Detected (NotDetected); Tricyclic Antidepressant,Urine Not Detected (NotDetected); Urn Cannabinoid Scrn Not Detected (NotDetected)
[2021-04-03 03:48] LABS: Glucose,Whole Blood 91 mg/dL (75-99)
[2021-04-03 04:17] LABS: Basophils % (A) 0 %; Eosinophils # (A) 0.2 k/uL (0-0.7); Eosinophils % (A) 2 %; HCT 38.8 % (34.0-46.0); HGB 13.3 gm/dL (11.4-16.0); Lymphocytes # (A) 2.4 k/uL (1.0-4.8); Lymphocytes % (A) 32 %; MCH 32.2 pg (25.0-35.0); MCHC 34.3 g/dL (31.0-37.0); MCV 93.8 fL (80.0-100.0); Mean Platelet Volume 10.2; Monocytes # (A) 0.5 k/uL (0-1.0); Monocytes % (A) 6 %; Neutrophils # (A) 4.2 k/uL (1.3-7.7); Neutrophils % (A) 57 %; Platelet Count 251 k/uL (150-450); RBC 4.14 m/uL (3.80-5.40); WBC 7.3 k/uL (3.8-10.6)
[2021-04-03] MEDS ORDERED: NICOTINE 7MG/24HR PATCH TRANSDERM STA (04:20)
--- NOTE | 2021-04-03 04:25 | US ---
EXAMINATION TYPE: US OB >= 14 wk fetus DATE OF EXAM: 04/03/2021 COMPARISON: None CLINICAL HISTORY: premature rupture of membranes. Patient felt a big gush of fluids. Very dif ficult exam due to no amniotic fluid TECHNIQUE: Transabdominal (TA) GESTATIONAL AGE / DATING Physician Established: (21 weeks/3 days) EDC: 08/11/2021 Dates by LMP: (21 weeks/3 days) EDC: 08/11/2021 Dates by First Scan: No previous this is first scan at this facility Dates by Current Scan: (19 weeks/5 days) EDC: 08/23/2021 SURVEY IUP: Single PLACENTA: Fundal PREVIA: No Previa as visualized GINO: 3.47 cm Oligohydramnios CERVICAL LENGTH (transabdominal: norm > 3.0cm): 2.5 cm as visualized BIOMETRY PRESENTATION: Breech LIE: Longitudinal BPD: 4.44 cm 19 weeks / 3 days HC: 17.65 cm 20 weeks / 1 days AC: 14.21 cm 19 weeks / 4 days FL: 3.07 cm 19 weeks / 4 days ESTIMATED WEIGHT IN GRAMS: 302 grams ESTIMATED WEIGHT IN LBS/OZ: 0 lbs. 11 oz. WEIGHT PERCENTAGE BASED ON ESTABLISHED DATES: <2% HC/AC: 1.24 Normal FL/AC: 22% Normal HEART RATE: 152 bpm RHYTHM: Normal Viable IUP. Oligohydramnios IMPRESSION: The ultrasound gestational age is 19 weeks and 5 days. Oligohydramnios.
--- NOTE | 2021-04-03 09:07 | P.PN ---
Progress Note - Text Progress Note Date: 04/03/21 Prerna is seen and evaluated. Lengthy discussion was held with she and her mother about potential plans moving forward whether is keeping her here versus transferring her to her high resource specialist versus even potentially discharge her home for the next week or 2 until she is closer to viability are all possibilities. I need to speak with maternal medicine and have their give an opinion on what they think we should do as far as moving forward. The other questions have is with her history of a classical section incision is it safe for her to try and labor should she go into labor at 21 weeks and deliver the baby or if she going to need a repeat section. More d etails will be included with the dictation later today. Her vital signs are otherwise stable and she is afebrile and she shows no signs or symptoms of labor.
[2021-04-04] MEDS: LACTATED RINGERS 1,000 ML IV SCH ×2 (09:30→12:37)
--- NOTE | 2021-04-04 09:39 | P.PN ---
Progress Note - Text Progress Note Date: 04/04/21 Prerna is seen and evaluated this morning. Her vital signs remained stable and she remains afebrile. We will continue antibiotics into the later today and discontinue them later today. She is feeling movement and heart rate on Doppler has been excellent. We'll plan this weekend to repeat her ultrasound to reassess fluid volume. I did speak with her maternal medicine specialist yesterday and there instructions were to essentially do nothing as she is previable. They were not recommending steroids and they were not recommending any tocolytics which is reasonable based on her estimated date of confinement. They did say that the first part next week once she passes 22 weeks they would be willing to accept her as a transfer but until she passes that marker they would not consider her a transfer candidate. All questions were answered for her this morning again she appears to be doing well will continue care for now she would like to shower and were allowing her to have a regular diet likely will plan to just continue close observational care for the next couple of days until she is either in labor were able to be transferred.
--- NOTE | 2021-04-05 08:58 | P.PN ---
Progress Note - Text Progress Note Date: 04/05/21 Prerna is seen and evaluated again this morning. She voices no complaints and relates only very scant drainage from the vagina. We'll plan ultrasound tomorrow to reevaluate amniotic fluid. We will restart her aspirin and vitamin as well as or Tylenol when necessary. She relates this morning she does have a headache but she believes is from her decreasing caffeine area we are also placing SCDs on her extremities bilaterally as initially I think the follow she was going to labor first day or so or be a candidate for transfer earlier so since she has not vomited labor and does not appear at this time she is going to going to labor will plan to place SCDs through the weekend for DVT prophylaxis. All the questions are answered for this time. She is feeling movement and the daily Dopplers have been good. Continue care for now. Vital signs otherwise stable and afebrile. Heart regular, lungs clear, extremities without pain. Abdomen is soft and shows no signs of labor at this time.
[2021-04-05] MEDS: ACETAMINOPHEN TAB 325 MG TAB PO PRN (10:05)
[2021-04-05] MEDS: PRENATAL VIT-IRON-FOLIC ACID 1 EACH CAP PO SCH (13:48)
[2021-04-05] MEDS: ASPIRIN 81 MG PO SCH (14:07)
[2021-04-05] MEDS: NICOTINE GUM (POLACRILEX) 2 MG GUM BUCCAL PRN ×2 (15:13→20:51)
[2021-04-05 21:58] LABS: Glucose,Whole Blood 87 mg/dL (75-99)
[2021-04-06 07:30] LABS: Glucose,Whole Blood 83 mg/dL (75-99)
[2021-04-06] MEDS: PRENATAL VIT-IRON-FOLIC ACID 1 EACH CAP PO SCH (08:18)
[2021-04-06] MEDS: NICOTINE GUM (POLACRILEX) 2 MG GUM BUCCAL PRN ×4 (08:18→20:40)
[2021-04-06] MEDS: ASPIRIN 81 MG PO SCH (08:18)
--- NOTE | 2021-04-06 08:56 | US ---
EXAMINATION TYPE: US OB limited DATE OF EXAM: 04/06/2021 COMPARISON: Ultrasound 3 days ago CLINICAL HISTORY: PPROM. Fluid check only per order EXAM PERFORMED: Transabdominal (TA) GESTATIONAL AGE / DATING Physician Established: (21 weeks/6 days) EDC: 08/11/2021 No growth performed on today?s study per ordering physician SURVEY GINO: 3.6 cm Oligohydramnios Ultrasound evidence of premature rupture of membranes? Low GINO PRESENTATION: Vertex HEART RATE: 143 bpm RHYTHM: Normal Full bladder also visualized. Single live intrauterine gestation redemonstrated. Persistent marked oligohydramnios. IMPRESSION: As above. No significant change from most recent ultrasound.
--- NOTE | 2021-04-06 09:45 | P.PN ---
Progress Note - Text Progress Note Date: 04/06/21 Prerna is doing well this morning. She is to continue tolerating her diet and ultrasound was repeated this morning showing but is effectively stained amniotic fluid index of approximately 3. Otherwise viable baby was again visualized. Plan for now is to continue current care. She voices no other complaints and while she was concern yesterday about her possible gestational diabetes we have done Accu-Cheks every before meals and at bedtime for the last few meals and they have been very normal and we'll discontinue those at this time.
[2021-04-07] MEDS: ASPIRIN 81 MG PO SCH (08:40)
[2021-04-07] MEDS: PRENATAL VIT-IRON-FOLIC ACID 1 EACH CAP PO SCH (08:40)
[2021-04-07] MEDS: NICOTINE GUM (POLACRILEX) 2 MG GUM BUCCAL PRN ×4 (08:40→20:05)
--- NOTE | 2021-04-07 10:40 | P.PN ---
Progress Note - Text Progress Note Date: 04/07/21 Prerna is doing well again today. She voices no complaints. She relates that she has not leaked and less today but still continues to feel the baby move. We'll plan continue care through today with expectation to at least call maternal- medicine tomorrow and address possible transfer. All questions are answered for her at this time.
[2021-04-08] MEDS: NICOTINE GUM (POLACRILEX) 2 MG GUM BUCCAL PRN ×5 (00:19→20:21)
[2021-04-08] MEDS: ASPIRIN 81 MG PO SCH (08:20)
[2021-04-08] MEDS: PRENATAL VIT-IRON-FOLIC ACID 1 EACH CAP PO SCH (08:20)
[2021-04-08] MEDS ORDERED: AZITHROMYCIN 500 MG TAB PO STA (10:37)
--- NOTE | 2021-04-08 10:37 | P.PN ---
Progress Note - Text Progress Note Date: 04/08/21 Prerna is seen and evaluated this morning. She continues to be afebrile and voices no signs or symptoms of labor. She is feeling movement and heart tones have been noted daily. I did speak with Dr. Ackerman and Talia out of [place] today, they both accepted the transfer but there is no transfer beds into the NICU therefore they are declining a transfer at this time due to sprinkling system irrigator direction. As it is now been 3 or 4 days without antibiotics and there is again a risk of infection beginning will start her on oral is surmised next 2 or 3 days prior to what is still anticipated to be a discharge. I had a very long discussion with Prerna about treatment plan and she understands limitations that we have with regard to the transfer. The option of again discharging her to home and if she notes change she could actually drive to [place] offered but she would feel more comfortable being in the hospital at this time. She is encouraged again to continue to use the SCDs to decrease risk of DVT. Otherwise she is tolerating her diet very well and she honestly is voicing no complaints. Vital signs are stable and she is afebrile. We'll plan continue care and expectations discuss transfer again on Thursday assuming that she remains stable through that time frame. I did discuss potentially transferring her to another facility but at this time she would like to remain with [facility], I did also did emphasize that I thought it was unlikely that I was confined many facilities that would accept her based on her still previable status at 22 weeks and 2 days gestation.
[2021-04-08] MEDS: ACETAMINOPHEN TAB 325 MG TAB PO PRN (20:20)
[2021-04-09] MEDS: NICOTINE GUM (POLACRILEX) 2 MG GUM BUCCAL PRN ×3 (06:43→16:28)
--- NOTE | 2021-04-09 08:36 | P.PN ---
Progress Note - Text Progress Note Date: 04/09/21 Prerna continues to do overall well. She is now 22 weeks 3 days gestation she did leak a little fluid last night but this is likely a good sign that the baby is producing some urine. Overall her vital signs are stable she remains afebrile and she voiced no complaint. We did restart azithromycin for short courses has been almost a week since her other antibiotics. All other questions are answered for this time. We'll discuss with maternal medicine again tomorrow potential for transfer. Continue current care.
[2021-04-09] MEDS: PRENATAL VIT-IRON-FOLIC ACID 1 EACH CAP PO SCH (09:16)
[2021-04-09] MEDS: AZITHROMYCIN 500 MG TAB PO SCH (09:16)
[2021-04-09] MEDS: ASPIRIN 81 MG PO SCH (09:16)
[2021-04-09] MEDS: ACETAMINOPHEN TAB 325 MG TAB PO PRN ×2 (13:29→19:33)
[2021-04-10] MEDS: PRENATAL VIT-IRON-FOLIC ACID 1 EACH CAP PO SCH (08:55)
[2021-04-10] MEDS: AZITHROMYCIN 500 MG TAB PO SCH (08:55)
[2021-04-10] MEDS: ASPIRIN 81 MG PO SCH (08:56)
[2021-04-10 09:22] VITALS: RESP 16
[2021-04-10] MEDS: NICOTINE GUM (POLACRILEX) 2 MG GUM BUCCAL PRN ×2 (10:07→14:07)
[2021-04-10] MEDS: ACETAMINOPHEN TAB 325 MG TAB PO PRN (12:59)
--- NOTE | 2021-04-10 13:40 | P.PN ---
Progress Note - Text Progress Note Date: 04/10/21 Prerna is again seen and evaluated. She continues to voices no complaints. Baby's movement is still noted. As per previous instructions from [facility] I did call again and again there unable to take her as a transfer due to NICU limitations. They recommended I call [facility] and see if they could accept transfer but they were unable to accept transfer either as there maternal medicine doctors off on bereavement. In attempting to call the physician at [facility] social secretary would not patient for me and I have tried multiple times to call the office and left a message for the on-call physician to return my call the have thus far after an hour and half weight not returned my call. It is unclear what are plan is moving forward as they have given me know direction at all. In speaking with her the question on continuing to monitor here versus discharge has been again raised. The concern I have is that when the initially told me that they would accept the transfer [facility] implying that they were worried about some stability factor with her leaving the very concerned about this discharging her to home and having her follow up with them. Therefore at this time we'll plan to continue care for now I am going to try and call [facility] for possible transfer to them as well at this point I relatively out of options and what care I can offer her. All questions are answered for her and I did outline all this in detail to her as well. We again discussed the fact that she is only 22 weeks and then there was a elderly high probability if she were to have the baby now that the baby would not survive outside of womb as well as even if she goes to her 3 more weeks there is significant morbidity associated with that early of a delivery. She seems to understand grasses but still wouldn't want everything done.
[2021-04-10 14:54] VITALS: BMI 29.6
[2021-04-10 16:35] VITALS: BP 110/67; PULSE 79; TEMP 98.7
--- NOTE | 2021-04-10 17:12 | P.DS ---
Providers Date of admission: 04/03/21 02:48 Expected date of discharge: 04/10/21 Attending physician: Adryan Garland Primary care physician: Stated None Hospital Course: Prerna is again seen and evaluated this evening. After trying uterus admission and to [facility] with no success in transfer we have offered to keep her here and continue the current monitoring status with R limited ability to anything further. At this time however, she relates that she would like to be discharged home as she is otherwise stable with stable vital signs and no fever or signs or symptoms term labor she has scant leakage and understands that it is impossible to really determine the future what will happen with this . She is aware that should she have any questions or concerns she can notify us but if there is any problems changes or issues she is really concerned about from a symptomatically standpoint she is likely better off going to [facility] for evaluation and treatment. I did speak with the attending [facility] again today this afternoon and he reiterated that realistically short of her getting to potentially 24 weeks unless there was a major change in her near radha care unit they were not going to accept the transfer. I also spoke to the attending at uterus admission who essentially stated the same thing that there male unit was closed outside transfers at this time and therefore the only option I have is to either keep her here or since she is otherwise stable and we really aren't doing anything for her from a medical standpoint to discharge her home and have her follow up outpatient. Otherwise questions are answered for her and again I did offer to continue to care for her in the hospital but at this time she would like to be with her family and will likely report to [place] in in a week or so assuming she continues forward with the with no other complications. Patient Condition at Discharge: Stable Plan - Discharge Summary New Discharge Prescriptions: No Action Bismuth Subsalicylate [Pepto-Bismol] 30 mg PO ONCE PRN PRN Reason: UPSET STOMACH Ibuprofen/Diphenhydramine HCl [Advil Pm Liqui-Gels] 1 cap PO HS PRN PRN Reason: Pain Ibuprofen [Motrin Ib] 200 - 400 mg PO Q6H PRN PRN Reason: Pain Acetaminophen [Children's Tylenol] 1 dose PO ONCE PRN PRN Reason: Pain HYDROcodone/APAP 5-325MG [[place] 5-325] 1 tab PO Q6HR PRN #10 tab PRN Reason: Pain Albuterol Inhaler (Mhu) [Ventolin Hfa Inhaler] 1 - 2 puff INHALATION Q6HR PRN PRN Reason: Wheezing Docusate [Colace] 100 mg PO BID #20 capsule HYDROcodone/APAP 7.5-325MG [[place] 7.5] 1 each PO Q4H PRN #30 tab PRN Reason: Pain Pnv No.95/Ferrous Fum/Folic AC [ Multivitamin Tablet] 1 each PO DAILY #30 tablet Metoclopramide [Reglan] 10 mg PO TID PRN #15 tab PRN Reason: nausea Calcium Carbonate [Calcium] 1 tab PO ONCE Aspirin 1 tab PO ONCE Discharge Medication List Acetaminophen [Children's Tylenol] 1 dose PO ONCE PRN 10/26/17 [History] Bismuth Subsalicylate [Pepto-Bismol] 30 mg PO ONCE PRN 10/26/17 [History] HYDROcodone/APAP 5-325MG [[place] 5-325] 1 tab PO Q6HR PRN #10 tab 10/26/17 [Rx] Ibuprofen [Motrin Ib] 200 - 400 mg PO Q6H PRN 10/26/17 [History] Ibuprofen/Diphenhydramine HCl [Advil Pm Liqui-Gels] 1 cap PO HS PRN 10/26/17 [History] Albuterol Inhaler (Mhu) [Ventolin Hfa Inhaler] 1 - 2 puff INHALATION Q6HR PRN 11/09/17 [History] Docusate [Colace] 100 mg PO BID #20 capsule 11/10/17 [Rx] HYDROcodone/APAP 7.5-325MG [[place] 7.5] 1 each PO Q4H PRN #30 tab 11/10/17 [Rx] Pnv No.95/Ferrous Fum/Folic AC [ Multivitamin Tablet] 1 each PO DAILY #30 tablet 05/29/19 [Rx] Metoclopramide [Reglan] 10 mg PO TID PRN #15 tab 12/01/20 [Rx] Aspirin 1 tab PO ONCE 04/03/21 [History] Calcium Carbonate [Calcium] 1 tab PO ONCE 04/03/21 [History] Discharge Disposition: HOME SELF-CARE
== END 2021-04-10 18:00 | disposition home or self-care (01) | DRG 832 ==
LOC: FBPOP 02:18 → 4FBP 02:48
PROVIDERS: ADMIT Obstetrics & Gynecology; ATTEND Obstetrics & Gynecology
DX: O42.912 Preterm premature rupture of membranes, unspecified as to length of time between rupture and onset of labor, second trimester (principal); O99.322 Drug use complicating pregnancy, second trimester; J45.909 Unspecified asthma, uncomplicated; F43.10 Post-traumatic stress disorder, unspecified; F31.9 Bipolar disorder, unspecified; F17.200 Nicotine dependence, unspecified, uncomplicated; F12.90 Cannabis use, unspecified, uncomplicated; O24.419 Gestational diabetes mellitus in pregnancy, unspecified control; Z3A.21 21 weeks gestation of pregnancy; O99.342 Other mental disorders complicating pregnancy, second trimester
CPT/HCPCS: 76805; 76815; 80306; 81001; 83036; 84112; 85025; 86850; 86900; 86901; 99213

== ENCOUNTER → 2022-08-25 | Outpatient (CLI) | payer OTHER ==
--- NOTE | 2022-08-25 08:33 | MM ---
Reason for Exam: Clinical finding. Baseline mammogram. Indicated Problems: Lump or thickening of the right side for 2 Month(s). Patient History: Menarche at age 10. First Full-Term at age 17. Premenopausal. Patient has history of breast feeding. Last menstrual period: 08/24/2022 Prior Study Comparison: Patient's first Mammogram. Tissue Density: There are scattered fibroglandular densities. Findings: Analyzed By CAD. No suspicious mass or worrisome calcification within either breast. No mammographic abnormality at right breast palpable marker site. Overall Assessment: Incomplete: need additional imaging evaluation, BI-RAD 0 Management: Diagnostic Breast Ultrasound of the right breast. A clinical breast exam by your physician is recommended on an annual basis and results should be correlated with mammographic findings. This exam should not preclude additional follow-up of suspicious palpable abnormalities. Results were given to the patient verbally at the time of exam. Electronically signed and approved by: Jd Saucedo D.O.
--- NOTE | 2022-08-25 08:46 | USB ---
Reason for Exam: Clinical finding. Patient History: Menarche at age 10. First Full-Term at age 17. Premenopausal. Patient has history of breast feeding. Findings: The upper inner quadrant of the right breast and the retroareolar of the right breast were scanned. Targeted ultrasound of the right breast region of palpable abnormality/pain at 1:00 performed. Additional evaluation of the nipple was performed. No solid or cystic lesion identified. Overall Assessment: Negative, BI-RAD 1 Management: Screening Mammogram of both breasts at age 38. Clinical management of the right breast for pain. A clinical breast exam by your physician is recommended on an annual basis and results should be correlated with mammographic findings. This exam should not preclude additional follow-up of suspicious palpable abnormalities. Results were given to the patient verbally at the time of exam. Electronically signed and approved by: Jd Saucedo D.O.
== END | disposition home or self-care (01) ==
LOC: RADMAMWWP 07:40
PROVIDERS: ATTEND Family Medicine
DX: R92.8 Other abnormal and inconclusive findings on diagnostic imaging of breast (principal); N63.10 Unspecified lump in the right breast, unspecified quadrant
CPT/HCPCS: 77066

== ENCOUNTER → 2023-08-20 | Outpatient (CLI) | payer OTHER ==
[2023-08-20 15:25] LABS: Basophils # (A) 0.04 X 10*3/uL (0.00-0.10); Basophils % (A) 0.7 %; Eosinophils # (A) 0.13 X 10*3/uL (0.04-0.35); Eosinophils % (A) 2.3 %; HCT 37.9 % (37.2-46.3); HGB 12.1 g/dL (12.0-15.0); Lymphocytes # (A) 1.48 X 10*3/uL (0.90-5.00); Lymphocytes % (A) 25.7 %; MCH 29.4 pg (27.0-32.0); MCHC 31.9 g/dL (32.0-37.0); MCV 92.2 FL (80.0-97.0); Mean Platelet Volume 10.5 FL (9.5-12.2); Monocytes # (A) 0.39 X 10*3/uL (0.20-1.00); Monocytes % (A) 6.8 %; NRBC Per 100 WBC 0 X 10*3/uL (0.00-0.01); Neutrophils % (A) 64.2 %; Platelet Count 300 X 10*3/uL (140-440); RBC 4.11 X 10*6/uL (4.10-5.20); RDW 12.3 % (11.5-14.5); WBC 5.76 X 10*3/uL (4.50-10.00)
== END | disposition home or self-care (01) ==
LOC: LABPAT 10:48
PROVIDERS: ATTEND Surgery
DX: Z01.812 Encounter for preprocedural laboratory examination (principal); I49.8 Other specified cardiac arrhythmias
CPT/HCPCS: 36415; 85025; 86850; 86900; 86901; 93005

== ENCOUNTER 2023-08-26 05:49 | Inpatient (IN) | payer MEDICARE, OTHER ==
[~2023-08-26 05:49] MED LIST changes: +ACETAMINOPHEN TAB 500 MG TAB PO PRN; -DEXAMETHASONE SOD PHOSPHATE 10 MG/ML 1 ML VIAL IV ONE; +DEXAMETHASONE SOD PHOSPHATE 4 MG/ML 1 ML VIAL IV ONE; -HEPARIN SODIUM,PORCINE 5,000 UNIT/ML 1 ML VIAL SQ ONE; +HEPARIN SODIUM,PORCINE 5,000 UNIT/ML 1 ML VIAL SQ PRN; -HYDROmorphone 0.5 MG/0.5 ML SYRINGE IVP PRN; -LIDOCAINE 1% 20 ML VIAL (10MG/ML) FOR IV START INTRADERMA PRN; -SCOPOLAMINE 1.5MG/72HR PATCH TRANSDERM ONE; -ceFAZolin IN SWFI 2 GM/20 ML SYRINGE IVP ONE
[2023-08-26] MEDS ORDERED: DEXAMETHASONE SOD PHOSPHATE 4 MG/ML 1 ML VIAL IV ONE (06:12)
[2023-08-26] MEDS: LACTATED RINGERS 1,000 ML IV SCH ×3 (06:30→14:30)
[2023-08-26] MEDS ORDERED: LIDOCAINE 1% (10MG/ML) FOR IV START INTRADERMA ONE (06:30)
[2023-08-26] MEDS ORDERED: HYDROmorphone 0.5 MG/0.5 ML SYRINGE IVP PRN (07:00)
[2023-08-26] MEDS ORDERED: MIDAZOLAM 2 MG/2 ML VIAL IVP ONE (07:07)
[2023-08-26] MEDS ORDERED: KETOROLAC 15 MG/ML 1 ML VIAL ONE (07:25)
[2023-08-26] MEDS ORDERED: NEOSTIGMINE 1 MG/ML 10 ML VIAL ONE (07:25)
[2023-08-26] MEDS ORDERED: PROPOFOL 10 MG/ML 20 ML VIAL IV ONE (07:25)
[2023-08-26] MEDS ORDERED: ROPIVACAINE 5 MG/ML 30 ML VIAL ONE (07:25)
[2023-08-26] MEDS ORDERED: GLYCOPYRROLATE 0.2 MG/ML 2 ML VIAL ONE (07:25)
[2023-08-26] MEDS ORDERED: SODIUM CHLORIDE 0.9% (PF) 10 ML VIAL ONE (07:25)
[2023-08-26] MEDS ORDERED: KETAMINE HCL IN 0.9 % NACL 50 MG/5 ML SYRINGE ONE (07:25)
[2023-08-26] MEDS ORDERED: LIDOCAINE 1% INJ 10MG/ML (20 ML MDV) ONE (07:25)
[2023-08-26] MEDS ORDERED: HYDROmorphone (PF) 1 MG/ML ONE (07:25)
[2023-08-26] MEDS ORDERED: DEXAMETHASONE SOD PHOSPHATE 4 MG/ML 1 ML VIAL ONE (07:25)
[2023-08-26] MEDS ORDERED: fentaNYL (PF) 50 MCG/ML 2 ML AMP ONE (07:25)
[2023-08-26] MEDS ORDERED: SUCCINYLCHOLINE CHLORIDE 200 MG/10 ML VIAL IV ONE (07:25)
[2023-08-26] MEDS ORDERED: ROCURONIUM 10 MG/ML (5 ML VIAL) IV ONE (07:25)
[2023-08-26] MEDS ORDERED: BUPIVACAINE (PF) 0.25% 10 ML VIAL SQ ONE (08:15)
[2023-08-26] MEDS ORDERED: LIDOCAINE 2%-EPI 1:100,000 20 ML VIAL SQ ONE (08:45)
[2023-08-26] MEDS: HYDROmorphone 0.5 MG/0.5 ML SYRINGE IVP PRN ×2 (09:12→13:20)
[2023-08-26] MEDS: ONDANSETRON 4 MG/2 ML VIAL IVP ONE ×2 (09:12→14:27)
[2023-08-26] MEDS ORDERED: HYDROcodone/APAP 5-325MG 1 EACH TAB PO PRN (09:14)
[2023-08-26] MEDS ORDERED: LACTATED RINGERS 1,000 ML IV ONE ×2 (09:14→10:08)
[2023-08-26] MEDS ORDERED: traMADol 50 MG TAB PO PRN (09:14)
[2023-08-26] MEDS ORDERED: NALOXONE 0.4 MG/ML 1 ML VIAL IV PRN (09:14)
[2023-08-26] MEDS ORDERED: ACETAMINOPHEN TAB 325 MG TAB PO PRN (09:14)
--- NOTE | 2023-08-26 09:14 | P.OP ---
Date of Procedure: 08/26/23 Preoperative Diagnosis: Incisional hernia of Pfannenstiel incision Postoperative Diagnosis: Incisional hernia f Pfannenstiel incision Procedure(s) Performed: Diagnostic laparoscopy Open repair of incisional hernia greater than 10 cm Anesthesia: BRIGETTE Surgeon: Paul Rey Estimated Blood Loss (ml): 20 Pathology: none sent Condition: stable Disposition: PACU Operative Findings: Large incisional hernia greater than 15 cm in length of the right lateral aspect of the Pfannenstiel incision. [place] prolene hernia mesh repair Description of Procedure: The patient is placed on the endooperative table in the supine position. She received general endotracheal tube anesthesia. Her abdomen was prepped and draped you sterile fashion. The skin was incised at the umbilicus. A a Julio clamp was placed the fascia and then using a Veress needle the peritoneal cavity entered. Position of the Veress needle was confirmed with a positive drop test. The abdomen insufflated. After adequate insufflation a 5 mm trocar was placed in [place] cavity. The right lower quadrant area was examined. There is a large amount of adhesions noted in the in the area. There was an obvious incisional hernia and hernia appeared to be greater than 15 cm in length. The hernia was positional along the Pfannenstiel scar. Due to the size and position of the hernia decided perform a open repair. The abdomen was desufflated. And then the skin was incised along the Pfannenstiel scar. Using electrocautery and sharp dissection the hernia sac was dissected free. The fascia external bleak was then exposed and dissected free use electrocautery. A four-quadrant transversus abdominis plane block was then performed with 1% local Xylocaine. The fascia was then reapproximated using 2-0 and 0 Ethibond [id number]-[id number] suture. Repair was then buttressed with #1 strata fix suture. A 6 x 6 piece of Prolene mesh was placed over top of the repair and secured with secure strap tacker. A MARIANO drain was placed over top with a pair and brought out through a stab incision in the left abdominal wall. The drain was secured with 2-0 nylon. Arleen's fascia closed 0 Vicryl. Skin was closed jacky. Patient was sent to recovery room in stable condition.
[2023-08-26] MEDS: KETOROLAC 15 MG/ML 1 ML VIAL IVP SCH ×3 (14:30→23:44)
--- NOTE | 2023-08-26 15:55 | P.ANPRN ---
Procedure Note - Anesthesia - Nerve Block Performed Bilateral Erector Spinae Single Time Out Performed: Yes Date of Procedure: 08/26/23 Procedure Start Time: :07 Procedure Stop Time: :14 Location of Patient: PreOp Indication: Acute Post-Operative Pain, Requested by Surgeon Sedation Type: Sedate with meaningful contact maintained Preparation: Sterile Prep Position: Prone Needle Types: Pajunk Needle Gauge: 21 Ultrasound used to visualize needle placement: Yes Ultrasound used to observe medication spread: Yes Blood Aspirated: No Pain Paresthesia on Injection Noted: No Resistance on Injection: Normal Image Stored and Saved: Yes Events: Uneventful and Well Tolerated (Ropivacaine.5% 15 cc plus normal saline 10 cc plus dexamethasone 4 mg given bilaterally at L1.)
[2023-08-26] MEDS: HYDROmorphone 1 MG/ML 1 ML SYRINGE IVP PRN ×2 (16:53→21:14)
[2023-08-26] MEDS: HYDROcodone/APAP 5-325MG 1 EACH TAB PO PRN (19:26)
[2023-08-26] MEDS: ONDANSETRON 4 MG/2 ML VIAL IVP PRN (19:26)
[2023-08-27] MEDS: HYDROmorphone 1 MG/ML 1 ML SYRINGE IVP PRN ×4 (01:32→19:35)
[2023-08-27] MEDS: HYDROcodone/APAP 5-325MG 1 EACH TAB PO PRN ×4 (03:37→21:28)
[2023-08-27] MEDS: ONDANSETRON 4 MG/2 ML VIAL IVP PRN ×2 (04:12→09:50)
[2023-08-27] MEDS: KETOROLAC 15 MG/ML 1 ML VIAL IVP SCH ×4 (05:43→23:45)
[2023-08-27] MEDS: LACTATED RINGERS 1,000 ML IV SCH ×2 (05:44→12:50)
[2023-08-27] MEDS: ENOXAPARIN 40 MG/0.4 ML SYRINGE SQ SCH (07:48)
[2023-08-27] MEDS ORDERED: PANTOPRAZOLE 40 MG TABLET PO SCH (11:00)
[2023-08-27] MEDS: MULTIVITAMINS, THERA 1 EACH TAB PO SCH (11:37)
[2023-08-27] MEDS: PANTOPRAZOLE 40 MG/10 ML VIAL IVP SCH (11:37)
[2023-08-27 12:31] LABS: Basophils % (A) 0 %; Eosinophils % (A) 0 %; HCT 37.6 % (34.0-46.0); HGB 12.3 gm/dL (11.4-16.0); Lymphocytes # (A) 1.8 k/uL (1.0-4.8); Lymphocytes % (A) 17 %; MCH 30.7 pg (25.0-35.0); MCHC 32.7 g/dL (31.0-37.0); MCV 93.9 fL (80.0-100.0); Mean Platelet Volume 8.5; Monocytes # (A) 0.6 k/uL (0-1.0); Monocytes % (A) 6 %; Neutrophils % (A) 76 %; Platelet Count 394 k/uL (150-450); RBC 4.01 m/uL (3.80-5.40); RDW 12.5 % (11.5-15.5); WBC 10.6 k/uL (3.8-10.6)
[2023-08-27 12:42] LABS: African American GFR (CKD) >90 (>60 ml/min/1.73 sqM); Anion Gap 11 mmol/L; Blood Urea Nitrogen 20 mg/dL (7-17); Calcium 9.6 mg/dL (8.4-10.2); Carbon Dioxide 22 mmol/L (22-30); Chloride 106 mmol/L (98-107); Glucose 102 mg/dL (74-99); Non-African American GFR(CKD) 89 (>60 ml/min/1.73 sqM); Potassium 4.1 mmol/L (3.5-5.1); Sodium 139 mmol/L (137-145)
--- NOTE | 2023-08-27 15:15 | P.CONS ---
History of Present Illness - Reason for Consult Consult date: 08/27/23 Medical management Requesting physician: Paul Rey - Chief Complaint Hernia repair - History of Present Illness Consult initially placed yesterday for Dr. Davis switch to to me and I was informed this morning. This is a pleasant 33-year-old patient who follows with Dr. Selam Holloway. Chronic stable medical conditions include asthma, GERD, obesity BMI 35.9. Patient has a previous Pfannenstiel incision that patient had noticed had a hernia. Patient is having trouble discomfort after wearing pants. This causing symptoms discomfort. She was then referred to surgery for the same. Yesterday evening underwent surgical repair of the same. Currently has a dressing in place and a MARIANO drain. Patient is having significant pain. Having some trouble walking because of the same. Started on a diet. No nausea vomiting. Sitting at the edge of the bed. Review of systems: GEN.: Tired EYES: None HEENT: None NECK: None RESPIRATORY: None CARDIOVASCULAR: None GASTROINTESTINAL: None GENITOURINARY: None MUSCULOSKELETAL: As above] LYMPHATICS: None HEMATOLOGICAL: None PSYCHIATRY: None NEUROLOGICAL: None Social history: Patient lives with her son. Employed at [employer]. Patient is attending school for classes. Does vaping. Physical examination: VITAL SIGNS: 98, 77, 18, 113 x 77, 98% room air GENERAL: BMI 35.9, simulated bed awake slightly uncomfortable. EYES: Pupils equal. Conjunctiva veronika l. HEENT: External appearance of nose and ears normal, oral cavity grossly normal. NECK: JVD not raised; masses not palpable. HEART: First and second heart sounds are normal; no edema. LUNGS: Respiratory rate normal; clear to auscultation. ABDOMEN: Soft, tender over the dressing lower abdomen. MARIANO drain., liver spleen not palpable, no masses palpable. PSYCH: Alert and oriented x3; mood and affect veronika l. MUSCULOSKELETAL:No Clubbing/cyanosis;muscles-grossly intact NEUROLOGICAL: Cranial nerves grossly intact; no facial asymmetry, power and sensation grossly intact. LYMPHATICS: No lymph nodes palpable in the axilla and neck INVESTIGATIONS, reviewed in the clinical context: August 27, 2023: White count 10.6 hemoglobin 12.3 platelets 394 sodium 139 potassium 4.1 creatinine 0.85 Assessment plan: -Incisional hernia of the fascial incision status post surgical repair on August [address] Rey. Pain controlled. -GERD Omeprazole -Chronic insomnia Melatonin -Obesity BMI 35.9 Weight loss measures Care was discussed with the patient. Questions answered. Increase activity as tolerated. Thank Dr Rey Past Medical History Past Medical History: Asthma, GERD/Reflux Additional Past Medical History / Comment(s): gestational DM, pre-eclampsia, anemia History of Any Multi-Drug Resistant Organisms: None Reported Past Surgical History: Section, Hernia Repair, Tubal Ligation Additional Past Surgical History / Comment(s): Colonoscopy, x 4, umbilical hernia repair 2018 Past Anesthesia/Blood Transfusion Reactions: No Reported Reaction Smoking Status: Current every day smoker - Past Family History Mother Family Medical History: No Reported History Medications and Allergies Home Medications Medication Instructions Recorded Confirmed Type Melatonin 10 mg PO HS 08/20/23 08/20/23 History Multivitamin [Multivitamins Adult 1 tab PO DAILY 08/20/23 08/21/23 History Gummies] Omeprazole 20 mg PO QAM 08/20/23 08/20/23 History Allergies Allergy/AdvReac Type Severity Reaction Status Date / Time erythromycin base AdvReac Abdominal Verified 08/26/23 06:23 Pain Physical Exam Vitals: Vital Signs Temp Pulse Pulse Resp BP BP Pulse Ox 08/27/23 07:17 98.0 F 77 18 113/77 98 08/27/23 01:46 98.4 F 88 16 104/60 97 08/26/23 19:20 85 18 08/26/23 18:54 98.2 F 112 H 18 122/79 97 08/26/23 15:23 104 H 113/78 98 08/26/23 14:54 115 H 116/77 96 08/26/23 14:22 98.4 F 96 16 128/89 96 08/26/23 13:21 85 16 125/70 97 08/26/23 11:58 85 16 123/71 100 08/26/23 11:37 84 16 109/61 100 08/26/23 11:07 100 16 111/63 99 08/26/23 10:39 90 16 113/61 98 Intake and Output 08/26/23 08/27/23 08/27/23 22:59 06:59 14:59 Intake Total 200 Output Total 40 55 Balance 160 -55 Intake: Oral 200 Output: Drainage 40 55 Left Lower Abdomen 40 55 Other: Voiding Method Toilet Toilet # Voids 1 Results CBC & Chem 7: 08/27/23 11:25 08/27/23 11:25
--- NOTE | 2023-08-27 15:33 | P.PN ---
Subjective Progress Note Date: 08/27/23 CHIEF COMPLAINT: Incisional hernia of Pfannenstiel incision HISTORY OF PRESENT ILLNESS: Patient is status post diagnostic laparoscopy with open repair of incisional hernia greater than 10 cm. Patient complaining of abdominal pain. She rated her pain this morning at a 7 out of 10. Denies any nausea or vomiting. She is having flatus. She has been up to ambulate. Denies any difficulty urinating. MARIANO drain 15 mL serosanguineous output. Afebrile. Afebrile. WBC 10.6 Hgb 12.3 platelets 394 sodium is 139 potassium 4.1 creatinine 0.85 PHYSICAL EXAM: VITAL SIGNS: Reviewed. GENERAL: Well-developed in no acute distress. ABDOMEN: Soft. Distended. Tender at incision site. Incisional dressing clean dry and intact. MARIANO drain in place. NEUROLOGIC: Alert and oriented. Cranial nerves II through XII grossly intact. ASSESSMENT: 1. Incisional hernia of Pfannenstiel incision PLAN: -Continue pain management -Abdominal binder and ice as needed ordered -Encourage patient to ambulate -Encourage patient to use incentive spirometer -Continue regular diet -Anticipate discharge tomorrow -GI prophylaxis Protonix DVT prophylaxis Lovenox Physician Inventory Assistant note has been reviewed by physician. Signing provider agrees with the documented findings, assessment, and plan of care. Objective - Vital Signs Vital signs: Vital Signs Temp 98.5 F 08/27/23 13:49 Pulse 77 08/27/23 13:49 Resp 18 08/27/23 13:49 BP 111/57 08/27/23 13:49 Pulse Ox 100 08/27/23 13:49 FiO2 Intake & Output 08/26/23 08/27/23 08/27/23 18:59 06:59 18:59 Intake Total 800 200 Output Total 790 55 15 Balance 10 145 -15 Intake: IV 800 Oral 200 Output: Drainage 40 55 15 Left Lower Abdomen 40 55 15 Urine 700 Estimated Blood Loss 50 Other: Voiding Method Toilet Toilet # Voids 1 - Labs CBC & Chem 7: 08/27/23 11:25 08/27/23 11:25 Labs: Abnormal Lab Results - Last 24 Hours (Table) 08/27/23 08/27/23 Range/Units 11:25 11:25 Neutrophils # 8.0 H (1.3-7.7) k/uL BUN 20 H (7-17) mg/dL Glucose 102 H (74-99) mg/dL
[2023-08-27 20:29] VITALS: RESP 16
[2023-08-27] MEDS ORDERED: MELATONIN 5 MG TABLET PO SCH (21:00)
[2023-08-28] MEDS: HYDROcodone/APAP 5-325MG 1 EACH TAB PO PRN ×2 (05:40→10:54)
[2023-08-28] MEDS: KETOROLAC 15 MG/ML 1 ML VIAL IVP SCH (05:41)
[2023-08-28] MEDS: LACTATED RINGERS 1,000 ML IV SCH ×2 (06:23→10:03)
[2023-08-28 08:10] VITALS: PULSE 89
[2023-08-28] MEDS: ENOXAPARIN 40 MG/0.4 ML SYRINGE SQ SCH (08:32)
[2023-08-28] MEDS: MULTIVITAMINS, THERA 1 EACH TAB PO SCH (08:32)
[2023-08-28] MEDS: PANTOPRAZOLE 40 MG/10 ML VIAL IVP SCH (08:32)
[2023-08-28] MEDS: HYDROmorphone 1 MG/ML 1 ML SYRINGE IVP PRN (08:35)
[2023-08-28] MEDS: ONDANSETRON 4 MG/2 ML VIAL IVP PRN (10:53)
[2023-08-28 13:11] VITALS: BP 126/85; TEMP 97.7
--- NOTE | 2023-08-28 14:14 | P.DS ---
Providers Date of admission: 08/26/23 09:59 Expected date of discharge: 08/28/23 Attending physician: Paul Rey Consults: 08/26/23 09:14 Consult Physician Routine Consulting Provider: Cade Coleman Consult Reason/Comments: Comanagement Do you want consulting provider notified?: Yes Primary care physician: Selam Holloway Hospital Course: Discharge diagnosis 1. Incisional hernia of Pfannenstiel incision status post diagnostic laparoscopy with open repair of incisional hernia greater than 10 cm Hospital course This is a 33-year-old female with a history of incisional hernia of Pfannenstiel incision. She is status post diagnostic laparoscopy with open repair of incisional hernia greater than 10 cm. Her pain is controlled. She is tolerating diet. She is afebrile. She has been up and ambulating. She is stable for discharge. Incision site clean dry and intact. Please refer to chart for any further details. Physician Core Carrier note has been reviewed by physician. Signing provider agrees with the documented findings, assessment, and plan of care. I have personally seen and examined the patient, reviewed the RESEARCH INVESTIGATOR /PAs history, exam and MDM and agree with the assessment and plan as written. Based on total visit time, I have performed more than 50% of the visit. As above: Patient doing better today. Was seen and evaluated by nurse practitioner. She wanted to go home. Will plan discharge. Plan outpatient follow-up with Dr. Rey. Patient Condition at Discharge: Stable Plan - Discharge Summary Discharge Rx Participant: Yes New Discharge Prescriptions: New HYDROcodone/APAP 5-325MG [[place] 5-325] 1 tab PO Q6HR PRN 3 Days #12 tab PRN Reason: Pain Ondansetron Odt [Zofran Odt] 4 mg PO Q8HR PRN #9 tab PRN Reason: Nausea Acetaminophen Tab [Tylenol] 650 mg PO Q6HR PRN tab PRN Reason: Mild Pain Or Fever >= 100.5 Ibuprofen [Motrin] 600 mg PO Q8HR PRN #30 tab PRN Reason: Pain Continue Omeprazole 20 mg PO QAM Multivitamin [Multivitamins Adult Gummies] 1 tab PO DAILY Melatonin 10 mg PO HS Discharge Medication List Melatonin 10 mg PO HS 08/20/23 [History] Multivitamin [Multivitamins Adult Gummies] 1 tab PO DAILY 08/20/23 [History] Omeprazole 20 mg PO QAM 08/20/23 [History] Acetaminophen Tab [Tylenol] 650 mg PO Q6HR PRN tab 08/28/23 [Rx] HYDROcodone/APAP 5-325MG [[place] 5-325] 1 tab PO Q6HR PRN 3 Days #12 tab 08/28/23 [Rx] Ibuprofen [Motrin] 600 mg PO Q8HR PRN #30 tab 08/28/23 [Rx] Ondansetron Odt [Zofran Odt] 4 mg PO Q8HR PRN #9 tab 08/28/23 [Rx] Follow up Appointment(s)/Referral(s): Selam Holloway MD [Primary Care Provider] - 1 Week (Please call the office to schedule a follow up appointment) Paul Rey MD [STAFF PHYSICIAN] - 09/03/23 1:50 pm Patient Instructions/Handouts: Hydrocodone/Acetaminophen (By mouth), Ibuprofen (By mouth), Ondansetron (By mouth) Activity/Diet/Wound Care/Special Instructions: No driving while taking [place] No lifting over 10 pounds You may shower. No soaking or tub baths for 2 weeks Very light activity until you are reevaluated at your follow up appointment with your surgeon Keep a log of MARIANO drain output and bring with you to your follow-up appointment Milk/strip drains 2-3 times a day Discharge Disposition: HOME SELF-CARE
--- NOTE | 2023-08-28 17:36 | P.PN ---
Progress Note - Text Progress Note Date: 08/28/23 - Chief Complaint Hernia repair - History of Present Illness Consult initially placed yesterday for Dr. Davis switch to to me and I was informed this morning. This is a pleasant 33-year-old patient who follows with Dr. Selam Hloloway. Chronic stable medical conditions include asthma, GERD, obesity BMI 35.9. Patient has a previous Pfannenstiel incision that patient had noticed had a hernia. Patient is having trouble discomfort after wearing pants. This causing symptoms discomfort. She was then referred to surgery for the same. Yesterday evening underwent surgical repair of the same. Currently has a dressing in place and a MARIANO drain. Patient is having significant pain. Having some trouble walking because of the same. Started on a diet. No nausea vomiting. Sitting at the edge of the bed. August 28: Doing better. Ambulating. Did pass flatus. Eating better. Questions answered. Follow-up with PCP upon discharge Current medications reviewed Social history: Patient lives with her son. Employed at [employer]. Patient is attending school for classes. Does vaping. Physical examination: VITAL SIGNS: 97.7, 89, 16, 126/85, 95% room air GENERAL: Sitting up in bed, more comfortable EYES: Pupils equal. Conjunctiva veronika l. HEENT: External appearance of nose and ears normal, oral cavity grossly normal. NECK: JVD not raised; masses not palpable. HEART: First and second heart sounds are normal; no edema. LUNGS: Respiratory rate normal; clear to auscultation. ABDOMEN: Soft, tender over the dressing lower abdomen. MARIANO drain., liver spleen not palpable, no masses palpable. Pfannenstiel incision healing well. MARIANO drain was in place PSYCH: Alert and oriented x3; mood and affect veronika l. INVESTIGATIONS, reviewed in the clinical context: August 27, 2023: White count 10.6 hemoglobin 12.3 platelets 394 sodium 139 potassium 4.1 creatinine 0.85 Assessment plan: -Incisional hernia of the fascial incision status post surgical repair on August [address] Rey. Pain controlled. -GERD Omeprazole -Chronic insomnia Melatonin -Obesity BMI 35.9 Weight loss measures Discussed. Follow-up with PCP upon discharge. Thank Dr Rey Past Medical History Past Medical History: Asthma, GERD/Reflux Additional Past Medical History / Comment(s): gestational DM, pre-eclampsia, anemia History of Any Multi-Drug Resistant Organisms: None Reported Past Surgical History: Section, Hernia Repair, Tubal Ligation Additional Past Surgical History / Comment(s): Colonoscopy, x 4, umbilical hernia repair 2018 Past Anesthesia/Blood Transfusion Reactions: No Reported Reaction Smoking Status: Current every day smoker
== END 2023-08-28 15:30 | disposition home or self-care (01) | DRG 355 ==
LOC: OR 05:49 → 5NMEDONC 09:59
PROVIDERS: ADMIT Surgery; ATTEND Surgery
PROC: 3E0T3BZ Introduction of Anesthetic Agent into Peripheral Nerves and Plexi, Percutaneous Approach (ICD-10-PCS; 2023-08-26)
PROC: 0WUF0JZ Supplement Abdominal Wall with Synthetic Substitute, Open Approach (ICD-10-PCS; principal; 2023-08-26 07:30)
DX: K43.2 Incisional hernia without obstruction or gangrene (principal); E66.9 Obesity, unspecified; J45.909 Unspecified asthma, uncomplicated; K66.0 Peritoneal adhesions (postprocedural) (postinfection); K21.9 Gastro-esophageal reflux disease without esophagitis; R26.2 Difficulty in walking, not elsewhere classified; F51.04 Psychophysiologic insomnia; F17.210 Nicotine dependence, cigarettes, uncomplicated; Z68.35 Body mass index [BMI] 35.0-35.9, adult; Z88.1 Allergy status to other antibiotic agents; Z79.899 Other long term (current) drug therapy
CPT/HCPCS: 64999; 80048; 81025; 85025